=== PATIENT | female | born 1930 | race Caucasian/White ===

== ENCOUNTER 2018-09-02 19:43 | Inpatient (IN) | payer MEDICARE ==
[2018-09-02] MEDS ORDERED: Ondansetron HCl/PF 4 MG/2 ML Vial ONE (20:25)
[2018-09-02 20:32] LABS: #Eosinphils 0.5 thou/uL (0.0-0.7); #Lymphocytes 2.4 thou/uL (1.20-3.40); #Monocytes 1.2 thou/uL (0.11-0.59); #Neutrophils 8.8 thou/uL (1.40-6.50); %Basophils 0.3 % (0.0-1.0); %Eosinophils 3.6 % (0.0-10.0); %Lymphocytes 18.5 % (21.0-51.0); %Monocytes 9.3 % (0.0-10.0); %Neutrophils 68.3 % (42.0-75.0); Hemoglobin 15.9 g/dL (12.0-16.0); Mean Corpuscular HGB CONC 33.5 g/dL (32.0-36.0); Mean Corpuscular Hemoglobin 30.3 pg (27.0-31.0); Mean Corpuscular Volume 90.3 fL (78.0-98.0); Mean Platelet Volume 8.6 fL (7.4-10.4); Platelet Count 181 thou/uL (130-400); RBC Distribution Width 12.9 % (11.5-14.5); Red Blood Cell (RBC) Count 5.25 mill/uL (4.20-5.40); White Blood Cell (WBC) Count 12.9 thou/uL (4.8-10.8)
[2018-09-02 20:56] LABS: ALT (SGPT) 16 U/L (8-55); AST (SGOT) 23 U/L (5-34); Alkaline Phosphatase 101 U/L (40-150); Anion Gap 14 mmol/L (10-20); BUN (Urea Nitrogen) 19 mg/dL (9.8-20.1); Bilirubin, Total 0.8 mg/dL (0.2-1.2); CK (CPK) 39 U/L (29-168); Calc. Creatinine Clearance 0 mL/min (70-130); Calcium 10.2 mg/dL (7.8-10.44); Carbon Dioxide 28 mmol/L (23-31); Chloride 102 mmol/L (98-107); Estimated GFR-MDRD 58; Globulin 3.5 g/dL (2.4-3.5); Glucose 107 mg/dL (83-110); Lipase 29 U/L (8-78); Potassium 3.8 mmol/L (3.5-5.1); Protein, Total 7.5 g/dL (6.0-8.3); Sodium 140 mmol/L (136-145)
[2018-09-02] MEDS ORDERED: Diltiazem 125 MG/25 ML ONE (21:00)
[2018-09-02] MEDS ORDERED: Morphine 2 MG/ML SYRINGE ONE (21:46)
[2018-09-02 21:49] LABS: CKMB 2.2 ng/mL (0-6.6); Troponin I 0.018 ng/mL (< 0.028)
[2018-09-02] MEDS ORDERED: Promethazine HCl 25 MG/ML VIAL ONE (21:55)
--- NOTE | 2018-09-02 22:20 | PDOC.FPRHP ---
Addendum entered and electronically signed by Azucena Chen MD 09/03/18 05:08 : Due to patient's iodine allergy will do CT without contrast. Patient's reaction is severe (tongue swelling) - recommendation is to avoid iodine. Original Note: - History of Present Illness Chief Complaint: abdominal pain History of Present Illness: This is an 88 yo F here with a CC of abdominal pain. The patient has a PMH significant for COPD and atrial fibrillation w/ pacemaker. The patient states she has had abdominal pain that started 2 days ago and suddenly became worse today. The pain cramping, non-radiating, episodic. The pain is associated with nausea and vomiting. 09/08 pain. Patient endorses BM this AM, non-bloody. In the ED, the patient experienced a run of V-tach - during this time she became nauseous. The patient was unable to take her home medications today due to nausea and vomiting. Patient states she has had a colonscopy in the last 10 years that was normal. Patient endorses a 20 lb unintentional weight loss over the last 6 months. Endorses SOB which is her baseline due to COPD. Denies fever , sick contacts, chest pain, LE swelling, urinary symptoms. ED Course: Given zofran, phenergan, morphine - Allergies/Adverse Reactions Allergies Allergy/AdvReac Type Severity Reaction Status Date / Time iodine Allergy Severe swollen Verified 09/03/18 03:13 tongue - Home Medications Medication Instructions Recorded Confirmed Type PARoxetine HCl [Paxil] 20 mg PO DAILY 09/05/13 09/03/18 History Rivaroxaban [Xarelto] 20 mg PO DAILY 09/05/13 09/03/18 History traZODone HCl 100 mg PO HS 05/04/14 09/03/18 History Albuterol Sulfate [Proair HFA] 2 puff INH Q4HR PRN #0 inh 05/06/14 09/03/18 Rx Atorvastatin Calcium [Lipitor] 10 mg PO DAILY 09/03/18 09/03/18 History Carvedilol 25 mg PO BID 09/03/18 09/03/18 History Diltiazem CD [Cardizem CD] 120 mg PO BID 09/03/18 09/03/18 History Fluticasone/Vilanterol [Breo 1 puff INH BID 09/03/18 09/03/18 History Ellipta] Levothyroxine Sodium [Synthroid] 50 mcg PO DAILY 09/03/18 09/03/18 History Losartan Potassium 50 mg PO DAILY 09/03/18 09/03/18 History Roflumilast [Daliresp] 500 mcg PO DAILY 09/03/18 09/03/18 History Sotalol HCl [Sotalol] 80 mg PO BID 09/03/18 09/03/18 History - History PMHx: COPD, afib with pacemaker, HTN PSHx: carpal tunnel surgery- bilateral, cholecystectomy, hysterectomy, orthopedic surgery - neck, back, r shoulder, thumb bilatteral, bilateral knee replacement FHx: non contributory Social: no smoking hx, denies alcohol and drug use - Review of Systems General: reports: weight/appetite/sleep changes. denies: fever/chills, night sweats Eyes: denies: vision changes Respiratory: reports: shortness of breath Cardiovascular: reports: palpitation. denies: chest pain, edema Gastrointestinal: reports: nausea, vomiting, abdominal pain. denies: diarrhea, constipation, GI bleeding Genitourinary: denies: incontinence, dysuria, polyuria Skin: denies: rashes, lesions Musculoskeletal: denies: swelling - Vital signs BP: 166/88 HR: 102 RR: 20 Tmax: 97.8 Pox: 94% on RA Wt: 59kg - Physical Exam Constitutional: NAD, awake, alert and oriented, well developed HEENT: normocephalic and atraumatic, EOMI, grossly normal vision, MMM Neck: FROM Chest: no-tender to palpation, no lesions Heart: RRR, normal S1/S2, no murmurs/rubs/gallops Lungs: CTAB, good air movement, no wheezing Abdomen: soft, bowel sounds present, no masses/distention -Abdomen: TTP diffusely, more in RLQ and LUQ; no rebound tenderness, no peritoneal signs, (+) guarding Musculoskeletal: ROM grossly normal Neurological: no focal deficit Skin: no rash/lesions Heme/Lymphatic: no unusual bruising or bleeding, no purpura, no petechia Psychiatric: normal mood and affect FMR H&P: Results - Labs Result Diagrams: 09/03/18 00:14 09/03/18 00:14 Lab results: WBC 12.9 thou/uL (4.8-10.8) H 09/02/18 20:24 Hgb 15.9 g/dL (12.0-16.0) 09/02/18 20:24 Hct 47.4 % (36.0-47.0) H 09/02/18 20:24 MCV 90.3 fL (78.0-98.0) 09/02/18 20:24 Plt Count 181 thou/uL (130-400) 09/02/18 20:24 Neutrophils % 68.3 % (42.0-75.0) 09/02/18 20:24 Sodium 140 mmol/L (136-145) 09/02/18 20:24 Potassium 3.8 mmol/L (3.5-5.1) 09/02/18 20:24 Chloride 102 mmol/L (98-107) 09/02/18 20:24 Carbon Dioxide 28 mmol/L (23-31) 09/02/18 20:24 BUN 19 mg/dL (9.8-20.1) 09/02/18 20:24 Creatinine 0.92 mg/dL (0.6-1.1) 09/02/18 20:24 Glucose 107 mg/dL (83-110) 09/02/18 20:24 Calcium 10.2 mg/dL (7.8-10.44) 09/02/18 20:24 Total Bilirubin 0.8 mg/dL (0.2-1.2) 09/02/18 20:24 AST 23 U/L (5-34) 09/02/18 20:24 ALT 16 U/L (8-55) 09/02/18 20:24 Alkaline Phosphatase 101 U/L (40-150) 09/02/18 20:24 Creatine Kinase 39 U/L (29-168) 09/02/18 20:24 CK-MB (CK-2) 2.2 ng/mL (0-6.6) 09/02/18 20:24 Serum Total Protein 7.5 g/dL (6.0-8.3) 09/02/18 20:24 Albumin 4.0 g/dL (3.4-4.8) 09/02/18 20:24 Lipase 29 U/L (8-78) 09/02/18 20:24 - EKG Interpretation EKG: vtach; QTc > 500 FMR H&P: A/P - Problem List (1) COPD (chronic obstructive pulmonary disease) Current Visit: Yes Status: Acute (2) Atrial fibrillation Current Visit: Yes Status: Acute Code(s): I48.91 - UNSPECIFIED ATRIAL FIBRILLATION (3) HTN (hypertension) Current Visit: No Status: Chronic Code(s): I10 - ESSENTIAL (PRIMARY) HYPERTENSION (4) Ventricular tachycardia Current Visit: Yes Status: Acute Code(s): I47.2 - VENTRICULAR TACHYCARDIA (5) Leukocytosis Current Visit: Yes Status: Acute Code(s): D72.829 - ELEVATED WHITE BLOOD CELL COUNT, UNSPECIFIED - Plan This is an 88 yo F presenting to the ED for work up of abdominal pain. Ventricular Tachycardia - Will order Mg, Phos - Will order TSH - Will order Echo to be done tomorrow - Trop neg X1 , will trend again Abdominal Pain - diagnosis uncertain at this time - differential includes: adynamic ileus, obstruction, appendicitis, mesenteric ischemia - will give LR @ 100mls/hr due to nausea/vomiting - Will order CT of abdomen w wo contrast - FOBT pending Leukocytosis - WBC: 12.9 - Will recheck with AM CBC Atrial fibrillation s/p pacemaker placement - Aware, will restart home meds - Nursing communication order to interrogate pacemaker COPD - Aware, will restart home meds - Will monitor VS and O2 sat; currently 92% in ED on RA HTN - BP: 160s/100 in ED - Will restart home meds Code: FULL DISPO: will admit to IMCU and continue to monitor Case Discussed with Dr. Moreno FMR H&P: Upper Level - Pertinent history 88 yo female here for abd pain. Patient reports this has been going on about 2 days, cramping, diffuse, non-radiating, lasting 10-15 seconds, every 15minutes. Assoc N/V with non-bloody emesis today x2. Endorses BM this morning with no blood. Denies fever, CP, dysuria, acute SOB. Medical Hx of COPD from second hand smoke, Afib with pacemaker, HTN. In ER patient had a run of Vtach which went in and out, lasting about an hour. They tried to give digoxin IV 5mg, but IV infiltrated so they are not sure how much was given. Rhythm strip at time of interview was paced by pacemaker. Patient also received morphine in ER with significant improvement of pain. - Pertinent findings 129/100 HR: 104 RR: 22 SO2: 92% GEN: NAD, AOx3 CARD: mild tachycardia, no m/g/r PULM: CTAB ABD: diffusely tender to deep palpation, BSx4, no guarding or peritoneal signs EXT: no cyanosis or edema KUB: adynamic ileus or mechanical obstruction EKG: ventricular paced with occasional PVCs trop: 0.018 Lipase: 29 WBC: 12.9 AST/ALT: 23/16 - Plan Date/Time: 09/02/18 [id number] I, London Corrales DO, have evaluated this patient and agree with findings/plan as outlined by administration intern resident. Pertinent changes/additions are listed here. Abdominal pain: etiology uncertain and nonspecific history and exam findings ddx includes appendicitis, ileus, adhesions, mesenteric ischemia, splenic infarct CTabdomen FOBT maintenance fluids due to n/v Afib with runs of vtach, Hx of pacemaker placement currently pacing Check Mg, Phos, TSH Restart home meds ECHO Monitor on IMCU Will also try to interrogate chest hardware trend trops HTN Continue home meds COPD Stable, continue to monitor Attending Addendum - Attending Addendum Date/Time: 09/03/18 [id number] I personally evaluated the patient and discussed the management with Dr. Chen on 09/02/2018 @23:45 I agree with the History, Examination, Assessment and Plan documented above with any addition or exceptions noted below- Briefly this is an 88 yo female with PMH of COPD, A-fib with pacer who presented c/o abdominal pain. Pain is described as cramping and started 2 days ago. Worsened acutely today which prompted her visit to the ER. Has had associated N/V today. Last BM am and normal. (+) flatus. Denies any diarrhea. No ill contacts. In ER monitoring specialist noted to show V-tach intermittently. PMH/PSH/Meds/ SH reviewed and agree with resident's documentation. Afebrile VSS Exam repeated by me and agree with resident's findings. Labs: WBC=12.9, H/H=15.9/47.4, Vd=425, K=3.8, BUN/Cr= 19/0.92, Trop I=0.018. EKG- V-paced rhythm. Abd series- adynamic ileus vs mechanical obstruction. A/P: 1) Abd pain- possible ileus versus SBO- not actively vomiting currently; plan for bowel rest; NPO except meds. Check CT abdomen. 2) V-tachycardia- only on monitoring specialist; rhythm strips with V-paced rhythm and some PVCs. Continue to monitor in IMCU. Check serial cardiac enzymes. Echo in AM.
--- NOTE | 2018-09-02 22:26 | RAD ---
ACUTE ABDOMINAL SERIES FRONTAL VIEW CHEST TWO VIEW ABDOMEN SERIES 09/02/18 INDICATION: Pain, abdominal pain. FINDINGS: There are multiple extrinsic artifacts limiting visualization. There is no obvious consolidation, def inite pneumothorax or significant pleural effusion. The bowel gas pattern reveals mildly dilated, air filled loops of bowel of the abdomen with differential air fluid levels. There is no free air beneat h the hemidiaphragms. There is osseous degenerative change and vascular calcification. IMPRESSION: Findings which may relate to adynamic ileus or mechanical obstruction. Correlate clinically. Continued imaging followup is recommended. POS: [facility]
[2018-09-02] MEDS ORDERED: Morphine 4 MG/ML VIAL IV PRN (23:33)
[2018-09-02] MEDS ORDERED: Ondansetron ODT 4 MG TAB SL PRN (23:34)
[2018-09-02] MEDS ORDERED: Ondansetron HCl/PF 4 MG/2 ML Vial IVP PRN (23:34)
[2018-09-03] MEDS ORDERED: Ondansetron HCl/PF 4 MG/2 ML Vial IVP PRN (00:01)
[2018-09-03] MEDS ORDERED: Acetaminophen 650 MG Suppository PR PRN (00:01)
[2018-09-03] MEDS ORDERED: Acetaminophen 325 MG TAB PO PRN (00:01)
[2018-09-03] MEDS ORDERED: Ondansetron ODT 4 MG TAB PO PRN (00:01)
[2018-09-03] MEDS ORDERED: PROVENTIL INHALER 6.7 G (200 INHALATIONS) INH PRN (00:15)
[2018-09-03] MEDS ORDERED: Carvedilol 25 MG TAB PO SCH (00:30)
[2018-09-03] MEDS ORDERED: Sotalol HCl 80 MG TAB PO SCH (00:30)
[2018-09-03 01:01] LABS: Magnesium 1.9 mg/dL (1.6-2.6); Phosphorus 4.4 mg/dL (2.3-4.7)
[2018-09-03 01:09] LABS: Troponin I 0.015 ng/mL (< 0.028)
[2018-09-03] MEDS ORDERED: Morphine 2 MG/ML SYRINGE SLOW IVP PRN (02:19)
[2018-09-03] MEDS ORDERED: Morphine 4 MG/ML VIAL SLOW IVP PRN (02:20)
[2018-09-03] MEDS: Lactated Ringer's 1,000 ML IV SCH ×4 (02:45→21:23)
[2018-09-03 04:55] LABS: #Eosinphils 0.4 thou/uL (0.0-0.7); #Lymphocytes 1.9 thou/uL (1.20-3.40); #Monocytes 1.4 thou/uL (0.11-0.59); #Neutrophils 9.2 thou/uL (1.40-6.50); %Basophils 0.3 % (0.0-1.0); %Eosinophils 3.3 % (0.0-10.0); %Lymphocytes 14.5 % (21.0-51.0); %Monocytes 10.9 % (0.0-10.0); Hemoglobin 14.7 g/dL (12.0-16.0); Mean Corpuscular HGB CONC 32.3 g/dL (32.0-36.0); Mean Corpuscular Hemoglobin 29.7 pg (27.0-31.0); Mean Platelet Volume 8.9 fL (7.4-10.4); Platelet Count 166 thou/uL (130-400); RBC Distribution Width 12.9 % (11.5-14.5); Red Blood Cell (RBC) Count 4.95 mill/uL (4.20-5.40); White Blood Cell (WBC) Count 12.9 thou/uL (4.8-10.8)
[2018-09-03 05:04] LABS: Anion Gap 13 mmol/L (10-20); BUN (Urea Nitrogen) 19 mg/dL (9.8-20.1); Calc. Creatinine Clearance 44 mL/min (70-130); Carbon Dioxide 29 mmol/L (23-31); Chloride 102 mmol/L (98-107); Estimated GFR-MDRD 63; Potassium 3.4 mmol/L (3.5-5.1); Sodium 141 mmol/L (136-145)
[2018-09-03 05:05] LABS: Calcium 9.6 mg/dL (7.8-10.44); Glucose 99 mg/dL (83-110)
[2018-09-03] MEDS: Levothyroxine Sodium 50 MCG TAB PO SCH (06:15)
--- NOTE | 2018-09-03 06:24 | PDOC.FM ---
- Subjective Subjective: Ms Verma is doing much better this morning pain is 0/10, previously 10/10. She does endorse abdominal pain when she presses on her stomach. Last BM yesterday morning. Denies nausea, vomiting. No other concerns. Prior hx of multiple abdominal exams including hysterectomy, appendectomy, cholecystectomy and bladder sling. - Objective MAR Reviewed: Yes Vital Signs & Weight: Vital Signs (12 hours) Temp Pulse Resp BP BP Pulse Ox 09/03/18 04:06 97.8 F 79 18 121/69 97 09/03/18 02:02 91 22 H 103/55 L 92 L 09/03/18 00:53 100 152/84 H 09/02/18 23:24 98.2 F 108 H 25 H 159/94 H 94 L Weight Weight 60.866 kg I&O: 09/01/18 09/02/18 09/03/18 06:59 06:59 06:59 Intake Total 541 Output Total 600 Balance -59 Result Diagrams: 09/03/18 00:14 09/03/18 00:14 Phys Exam - Physical Examination Constitutional: NAD laying in bed Respiratory: no wheezing, clear to auscultation bilateral Cardiovascular: RRR, no significant murmur Gastrointestinal: soft, positive bowel sounds diffusely tender to palpation, worst in RLQ Musculoskeletal: no edema, pulses present Psychiatric: normal affect, A&O x 3 Skin: cap refill <2 seconds Dx/Plan (1) Atrial fibrillation Code(s): I48.91 - UNSPECIFIED ATRIAL FIBRILLATION Status: Acute (2) COPD (chronic obstructive pulmonary disease) Status: Acute (3) Leukocytosis Code(s): D72.829 - ELEVATED WHITE BLOOD CELL COUNT, UNSPECIFIED Status: Acute (4) Ventricular tachycardia Code(s): I47.2 - VENTRICULAR TACHYCARDIA Status: Acute (5) Atrial fibrillation with RVR Code(s): I48.91 - UNSPECIFIED ATRIAL FIBRILLATION Status: Acute (6) HTN (hypertension) Code(s): I10 - ESSENTIAL (PRIMARY) HYPERTENSION Status: Chronic - Plan Plan: Ventricular Tachycardia - Mg, Phos, TSH nml - Echo pending - Trop neg x2 Abdominal Pain - Adynamic ileus vs obstruction vs appendicitis vs mesenteric ischemia - LR @100mls/hr - Abdominal Xrays: findings which may relate to adynamic ileus or mechanical obstruction. Reviewed imaging. - CT: Mild/mod partial SBO right lower hemipelvis. Numerous dilated loops of ileum transition to nml terminal ileum in right lower hemipelvis. findings of prior granulomatous disease - FOBT pending - Surgery consulted - NPO Nausea/Vomiting - LR @100mls/hr Leukocytosis - Wbc 12.9 - Continue to monitor Atrial fibrillation s/p pacemaker placement - Continue home meds - Nursing communication order to interrogate pacemaker COPD - Continue home meds HTN - Continue home meds Code Status: FULL DVT ppx: Xarelto
[2018-09-03] MEDS ORDERED: Potassium Chloride 20 MEQ TAB PO SCH (06:30)
[2018-09-03] MEDS: Mometasone/Formoterol 120 PUFF INHALER INH SCH ×2 (06:49→18:53)
--- NOTE | 2018-09-03 07:41 | CT ---
CT OF THE ABDOMEN AND PELVIS WITHOUT IV CONTRAST: INDICATION: Adynamic ileus versus mechanical obstruction. COMPARISON: None. FINDINGS: There is bibasilar volume loss within the lung bases. There is a calcified granuloma in the left lowe r lobe. Gallbladder is surgically absent. There are scattered granuloma involving the liver and the spleen. Unopacified pancreas, adrenal glands, and kidneys appear within normal limits. There is severe gastric calcification involving the abdominopelvic vasculature. Visualized bladder is unremarkable-appearing. There are scattered diverticula involving the colon. There is some decompression of portions of the descending colon and sigmoid colon giving the appearance of mild wall thickening. There is also mild free fluid in the lower pelvis. Colitis would be difficult to definitely exclude but is felt to be unlikely. There is some fluid density present within the right hemicolon. There is scattered free f luid within the abdomen. There are dilated loops of distal ileum with decompressed appearance to the terminal ileum. No definite transitional zone is evident; however, it may occur within the right lo wer quadrant of the abdomen where there is decompressed terminal ileum extending up to the cecum. Ov erall, the findings are suspicious for a mild to moderate partial small bowel obstruction. There is diffuse osteopenia. There are bilateral pars defects at L5. There is scattered degenerativ e and osteoarthritic change. There is thoracolumbar scoliosis. No definite acute osseous abnormalit y is evident. IMPRESSION: 1. Findings suspicious for mild to moderate partial small bowel obstruction in the right lower hemip andrzej. There are numerous dilated loops of ileum that appear to transition to normal terminal ileum in the right lower hemipelvis. The actual transition zone is difficult to see due to the absence of enteric contrast as well as free fluid in the pelvis. No definite free air is evident. 2. Bibasilar atelectasis. 3. Findings of prior granulomatous disease. 4. Other chronic findings as above. POS: BH
--- NOTE | 2018-09-03 08:25 | CON ---
DATE OF CONSULTATION: 09/03/2018 A 70 minutes time was spent in consult. Of that, greater than 50% was spent with the patient and/or the patient's unit in the hospital. REASON FOR CONSULTATION: [facility] mandatory consult. HISTORY OF PRESENT ILLNESS: The patient is a pleasant 88-year-old female who [facility] with subacute onset of abdominal pain. Symptoms started 2 days prior to admission. Thi s was associated with nausea and cramping. She denies any emesis. She denies any diarrhea. She say s the pain is better this morning. A CT obtained last night demonstrated a partial small bowel obstr uction in the right lower hemipelvis. At the time of this dictation, she has not been seen by the Hi stroenterology or General Surgery. PAST MEDICAL HISTORY: 1. COPD. 2. Atrial fibrillation. 3. Hypertension. 4. Osteoarthritis. PAST SURGICAL HISTORY: She has had an appendectomy, cholecystectomy, bilateral carpal tunnel release , bilateral knee replacements, neck surgery, right shoulder surgery, hysterectomy. FAMILY MEDICAL HISTORY: Unremarkable. SOCIAL HISTORY: Denies smoking, alcohol consumption. She says she lives in [place] with her grands on. She seeks most of her medical care in [place]. REVIEW OF SYSTEMS: Denies any fever or chills. She has had some nausea, but no vomiting. No hemate mesis, no melena, no hematochezia, no hematuria, no dysuria. No problems controlling blood sugars. PHYSICAL EXAMINATION: VITAL SIGNS: Temperature 97.6, pulse 83, respirations 18, O2 sat 97% on 2 liters, blood pressure 116 /66. HEENT: Pupils are reactive. Sclerae are anicteric. Oropharynx clear. NECK: No adenopathy, JVD, or bruits. LUNGS: Clear without wheezing or rhonchi. CARDIAC: S1 and S2 regular. There is a pacemaker palpable in left upper quadrant chest. ABDOMEN: She has tenderness in right mid portion of her stomach laterally. No rebound. Bowel sound s hypoactive. EXTREMITIES: No clubbing, cyanosis or edema. She has bilateral knee surgery scars. LABORATORY DATA: White blood cell count 12.9, hematocrit 45.5, platelet count 166. Sodium 141, pota ssium 3.4, chloride 102, CO2 29, BUN 19, creatinine 0.8, glucose 99. IMAGING: Abdominal CT was reviewed. ASSESSMENT: 1. Small-bowel obstruction. 2. Ventricular tachycardia at the time of admission, which was not sustained. 3. Underlying chronic obstructive pulmonary disease. RECOMMENDATIONS: 1. I would recommend a General Surgery consultation. 2. The patient really does not require IMCU placement at this time. She can be moved out to the tel emetry unit. I would keep her on IV fluids until General Surgery makes further disposition regarding small-bowel obstruction.
[2018-09-03] MEDS ORDERED: Non-Formulary Item 1 EACH (Fluticasone/Vilanterol [Breo Ellipta] 1 PUFF) INH SCH (09:00)
[2018-09-03] MEDS: Roflumilast [Daliresp] 500 MCG PO SCH ×2 (09:10→10:53)
[2018-09-03] MEDS: Rivaroxaban 10 MG TAB PO SCH ×2 (09:10→17:36)
[2018-09-03] MEDS ORDERED: Magnesium Sulfate 2 GM in Sodium Chloride 0.9% 100 ML IVPB SCH (09:30)
[2018-09-03] MEDS ORDERED: Magnesium 2 GM/50 ML 2 GM in Premix Bag 1 BAG IVPB SCH (10:00)
[2018-09-03] MEDS: Carvedilol 25 MG TAB PO SCH ×2 (10:47→21:23)
[2018-09-03] MEDS: Sotalol HCl 80 MG TAB PO SCH ×2 (10:48→21:22)
[2018-09-03] MEDS: Losartan 25 MG TAB PO SCH (10:48)
[2018-09-03] MEDS: Atorvastatin Calcium 10 MG TAB PO SCH (10:48)
[2018-09-03] MEDS: PARoxetine 20 MG TAB PO SCH (10:50)
--- NOTE | 2018-09-03 10:59 | PRG ---
DATE OF SERVICE: 09/03/2018 This is an addendum to the note of Dr. Haley Orozco. Ms. Verma is a pleasant 88-year-old white female patient who was admitted with a small-bowel obstru ction. With conservative management including IV fluids and keeping in an n.p.o. status, it appears this morning that the obstruction is likely resolved. Her abdomen is flat and soft with minimal righ t lower quadrant tenderness. No rebound, no guarding. We will proceed with small bowel series and i f this is normal, we can likely begin to feed her. We will go ahead and consult Surgery unless any c omplications arise. Otherwise, as stated, she seems to have resolved her SBO with conservative manag ement. Her CBC this morning shows a white count elevation of 12,900. Her hemoglobin is 14.7, hematocrit 45. 5. Chemistries; her sodium is 141, potassium slightly low at 3.4. We need to bring this up to 4. H er chloride is 102, bicarbonate 29, BUN 19, creatinine 0.85. She also had a low magnesium level of 1 .9. This needs to be corrected to above 2. While in the ER, she had a run of nonsustained ventricular tachycardia. This was likely due to mild electrolyte disturbances along with the pain she was in from her SBO. She has had no further activit y on the monitor while in the IMCU.
--- NOTE | 2018-09-03 12:54 | CON ---
DATE OF CONSULTATION: 09/03/2018 REQUESTING PHYSICIAN: Dr. Candace Hahn. HISTORY OF PRESENT ILLNESS: This is an 88-year-old pleasant woman who was admitted yesterd ay. The patient reports insidious onset of lower abdominal pain which started 3 days previously. Pa in intensified to 09/08, described as crampy and associated with nausea yesterday. As a result, she presented to emergency department. Workup last night included a CT scan of the abdomen and pelvis wh ich was suspicious for acute small-bowel obstruction. I was asked to evaluate the patient for possib le surgical management. At the time of my evaluation, patient is awake and alert. She reports no ab dominal pain. Her last bowel movement was yesterday morning and was normal for her. She reports int ermittent episode of melena. The last time was approximately 2 months ago. She denies any hematoche priscilla. She endorses a 20-pound unexplained weight loss over the last 6 months. She also endorses fati richi. Appetite is good. She denies any early satiety. The patient denies any fevers or chills. PAST MEDICAL HISTORY: Pertinent for COPD, which she acquired from secondary smoking. Other pertinen t past medical history includes essential hypertension and atrial fibrillation. SURGICAL HISTORY: Pertinent for pacemaker implantation, cholecystectomy, hysterectomy through an inf raumbilical midline incision, bilateral knee arthroplasties, bilateral carpal tunnel release, appende ctomy, and right shoulder surgery. FAMILY HISTORY: Noncontributory for this patient's age. PREHOSPITALIZATION MEDICATIONS: Carvedilol 25 mg p.o. b.i.d., atorvastatin 10 mg p.o. daily, albuter ol inhaler p.r.n., diltiazem 120 mg p.o. b.i.d., Breo Ellipta 1 puff b.i.d., levothyroxine 50 mcg p.o . daily, losartan 50 mg p.o. daily, paroxetine 20 mg p.o. daily, sotalol 80 mg p.o. b.i.d., trazodone 100 mg p.o. at bedtime, and Xarelto 20 mg p.o. daily. ALLERGIES: IODINE. REVIEW OF SYSTEMS: A 10-point review of systems essentially unremarkable except for as stated in pas t medical history and chief complaint. PHYSICAL EXAMINATION: GENERAL: This reveals an 88-year-old normally developed woman who is otherwise coherent and interact preston and appears stated age. The patient is alert and oriented x3. She appears to be in no acute dis tress at the time of my evaluation. VITAL SIGNS: Today includes blood pressure 116/66, pulse is 73, respiratory rate is 18, temperature is 97.6 degrees Fahrenheit and oxygen saturation is 97% on 2 liters by nasal cannula oxygen. HEENT: Examination reveals normocephalic and atraumatic. HEART: Reveals irregular rate and irregular rhythm. LUNGS: Clear to auscultation bilaterally. Breathing regular and unlabored. ABDOMEN: Soft, nontender and nondistended. Liver and spleen nonpalpable below costal margin. She c learly has no peritoneal signs on examination. NEUROLOGIC: Examination reveals no focal deficits present. EXTREMITIES: Reveals 2+ radial and pedal pulses bilaterally. No ankle edema present. LABORATORY DATA: Pertinent laboratory findings today includes CBC with 12,900 white blood cells, hem oglobin and hematocrit 14.7 and 45.5 respectively, platelet count is 166,000. Metabolic profile; sod ium is 141, potassium 3.4, chloride is 102, bicarbonate is 29, BUN is 19, creatinine is 0.85, glucose is 99, phosphorus is 4.4 and magnesium is 1.9. IMAGING DATA: I have personally reviewed the CT scan of the abdomen and pelvis obtained yesterday wh ich reveals multiple distended loops of small bowel in the right lower quadrant. There is gas within the colon and rectum. There appears to be no transition zone, although this was a noncontrast CT sc an which makes it difficult to appreciate any transition point. IMPRESSION: 1. Resolving abdominal pain, likely secondary to partial small-bowel obstruction. 2. Acute hypokalemia. 3. Acute hypomagnesemia. RECOMMENDATIONS: 1. Correct abnormal electrolytes. 2. Obtain acute small bowel follow through to better define any mechanical bowel obstruction or absc ess there off. 3. There clearly is no acute surgical indication for this patient at this time. We will continue wi th serial physical examination and make further recommendations as necessary. Ultimately, this patie nt will certainly need a repeat prep bowel colonoscopy by GI hopefully on outpatient basis as I am co ncerned of a possible neoplastic process, especially in the right colon given 20-pound unexplained we ight loss over the last 6 months in an elderly patient who has not had any colonoscopy in the past 10 years. Above findings and recommendation have been discussed with the patient who clearly indicates understa nding of information given. I answered her questions. Thank you again, Dr. Hahn for allowing me the opportunity to participate in the care of this patien t.
[2018-09-03] MEDS ORDERED: MD-Gastroview 120 ML BOT ONE (13:32)
--- NOTE | 2018-09-03 13:48 | RAD ---
SMALL BOWEL FOLOW-THROUGH: Date: 09/03/18 INDICATION: Abdominal pain. History of ileus versus partial obstruction. FINDINGS: There is passage of enteric contrast through the small bowel and into the colon at approximately 30 m inutes. By 1 hour, there is subsequent opacification of the majority of the colon. IMPRESSION: Appropriate transit of contrast into the colon, excluding high grade obstruction. POS: [facility]I
[2018-09-03] MEDS: traZODone HCl 50 MG TAB PO SCH (21:22)
[2018-09-04] MEDS: Levothyroxine Sodium 50 MCG TAB PO SCH (05:44)
--- NOTE | 2018-09-04 06:24 | PDOC.FM ---
- Subjective Subjective: Patient states pain is well-controlled this AM. Denies anyt vomiting overnight but did have some nausea after drinking some coffee this AM. States last BM was this AM. States she has not been passing gas. - Objective MAR Reviewed: Yes Vital Signs & Weight: Vital Signs (12 hours) Temp Pulse Resp BP BP Pulse Ox 09/04/18 04:31 98.5 F 75 17 157/84 H 93 L 09/04/18 00:32 97.7 F 93 19 165/86 H 93 L 09/03/18 21:22 84 153/79 H 09/03/18 20:00 93 L 09/03/18 19:44 98.5 F 84 15 153/79 H 93 L Weight Weight 60.373 kg I&O: 09/02/18 09/03/18 09/04/18 06:59 06:59 06:59 Intake Total 541 2252 Output Total 600 1600 Balance -59 652 Result Diagrams: 09/03/18 00:14 09/04/18 06:50 Phys Exam - Physical Examination Constitutional: NAD HEENT: sclera anicteric Neck: supple, full ROM Respiratory: no wheezing, no rales, no rhonchi, clear to auscultation bilateral Cardiovascular: no significant murmur irregularly irregular rhythm, regular rate Gastrointestinal: soft, no distention, positive bowel sounds slightly TTP, especially in mid abdomen Musculoskeletal: no edema Neurological: non-focal, moves all 4 limbs Psychiatric: normal affect, A&O x 3 Skin: no rash, normal turgor Dx/Plan (1) Atrial fibrillation Code(s): I48.91 - UNSPECIFIED ATRIAL FIBRILLATION Status: Acute (2) COPD (chronic obstructive pulmonary disease) Status: Acute (3) Leukocytosis Code(s): D72.829 - ELEVATED WHITE BLOOD CELL COUNT, UNSPECIFIED Status: Acute (4) Ventricular tachycardia Code(s): I47.2 - VENTRICULAR TACHYCARDIA Status: Acute (5) Atrial fibrillation with RVR Code(s): I48.91 - UNSPECIFIED ATRIAL FIBRILLATION Status: Acute (6) Diastolic CHF, acute on chronic Code(s): I50.33 - ACUTE ON CHRONIC DIASTOLIC (CONGESTIVE) HEART FAILURE Status : Acute (7) Chronic respiratory failure Code(s): J96.10 - CHRONIC RESPIRATORY FAILURE, UNSP W HYPOXIA OR HYPERCAPNIA Status: Chronic (8) Dyslipidemia Code(s): E78.5 - HYPERLIPIDEMIA, UNSPECIFIED Status: Chronic (9) HTN (hypertension) Code(s): I10 - ESSENTIAL (PRIMARY) HYPERTENSION Status: Chronic - Plan Plan: Plan: Ventricular Tachycardia - Resolved, likely 2/2 electrolyte abnormalities and/or medication noncompliance. - Echo showed preserved EF of 55-60%. - Trop neg x2 on admission. - Will continue to follow electrolytes w/ QD BMP, Mg, phos. SBO - Will consider de-escalating IVFs and advancing to clear liquids today as small bowel follow through negative for obstruction. - Will continue PO pain meds today and PO zofran for nausea. h/o melena w/ weight loss - Surgery consulted & did not see any need for emergent surgical intervention at this time. Recommended an FOBT and colonoscopy as an outpatient as patient reported episodic melena & 20 pound unintentional weight loss. - FOBT pending. Leukocytosis - Wbc 12.9 on admission and yesterday. Likely stress response from SBO. - Continue to monitor w/ AM CBC. hypokalemia - 3.4 this AM. - Will continue w/ QD PO K replacement & follow w/ AM BMPs. Atrial fibrillation s/p pacemaker placement - Continue home meds - Nursing communication order placed to interrogate pacemaker. Will ensure this is done today. COPD - Continue home meds HTN - Continue home meds Hypothyroidism - TSH WNLs on admission. - Will continue home meds. HLD - Will continue home meds. Code Status: FULL DVT ppx: Xarelto Dispo: Potential d/c later today or tomorrow once tolerating PO. Will transfer to floor today.
[2018-09-04] MEDS: Mometasone/Formoterol 120 PUFF INHALER INH SCH ×2 (06:39→19:22)
[2018-09-04 07:30] LABS: Anion Gap 12 mmol/L (10-20); BUN (Urea Nitrogen) 17 mg/dL (9.8-20.1); Calc. Creatinine Clearance 52 mL/min (70-130); Calcium 8.6 mg/dL (7.8-10.44); Carbon Dioxide 26 mmol/L (23-31); Chloride 106 mmol/L (98-107); Estimated GFR-MDRD 78; Glucose 59 mg/dL (83-110); Magnesium 1.8 mg/dL (1.6-2.6); Phosphorus 2.8 mg/dL (2.3-4.7); Potassium 3.4 mmol/L (3.5-5.1); Sodium 141 mmol/L (136-145)
[2018-09-04] MEDS ORDERED: Potassium Chloride 20 MEQ TAB PO SCH (08:00)
[2018-09-04] MEDS: Rivaroxaban 10 MG TAB PO SCH (08:57)
[2018-09-04] MEDS: Losartan 25 MG TAB PO SCH (08:57)
[2018-09-04] MEDS: Sotalol HCl 80 MG TAB PO SCH ×2 (08:57→20:54)
[2018-09-04] MEDS: PARoxetine 20 MG TAB PO SCH (08:58)
[2018-09-04] MEDS: Atorvastatin Calcium 10 MG TAB PO SCH (08:58)
[2018-09-04] MEDS: Carvedilol 25 MG TAB PO SCH ×2 (08:58→20:55)
[2018-09-04] MEDS: Roflumilast [Daliresp] 500 MCG PO SCH (08:59)
[2018-09-04] MEDS: Lactated Ringer's 1,000 ML IV SCH (09:00)
--- NOTE | 2018-09-04 14:56 | PRG ---
DATE OF SERVICE: 09/04/2018 SUBJECTIVE: The patient is doing well and has no complaints. She wants to go home. OBJECTIVE: VITAL SIGNS: Temperature 98, pulse 73, respirations 20, O2 sat 95%, blood pressure 146/76. HEENT: Unremarkable. NECK: No JVD. CHEST: Clear without wheezing or rhonchi. CARDIAC: S1 and S2 regular. ABDOMEN: Soft. EXTREMITIES: No edema. LABORATORY DATA: Her chemistry was normal except for potassium 3.4 and glucose of 59. ASSESSMENT: 1. Small-bowel obstruction that appears to be resolved. 2. Status post V-tach. 3. Underlying chronic obstructive pulmonary disease, which is stable. PLAN: No real pulmonary issues at this time. I will sign off. Please recall if further assistance needed.
[2018-09-04] MEDS: Potassium Chloride 20 MEQ TAB PO SCH (16:38)
--- NOTE | 2018-09-04 18:35 | PRG ---
DATE OF SERVICE: 09/04/2018 The patient is hospital day #3, status post admission for a possible small-bowel obstruction and also the patient had an episode of ventricular tachycardia. We have been following the patient for evalu ation of a possible small-bowel obstruction. Yesterday, she underwent a small bowel follow through w hich was unremarkable, matter fact, the contrast passed through as expected timewise. Overnight, the patient has had no issues. She is continuing to have loose stools and is tolerating a diet and caro es any pain. During my interview, the patient noted that she has been on antibiotics for [place] n 14 days, approximately 2 weeks ago due to admission for a COPD exacerbation and was treated for bro nchitis. PHYSICAL EXAMINATION: VITAL SIGNS: Temperature is 98.7, heart rate 80, blood pressure 164/82, respirations 18, oxygen satu ration is 95% on room air. GENERAL: The patient is resting comfortably in bed. She is awake, alert, oriented. HEENT: Unremarkable. LUNGS: Clear to auscultation bilaterally. HEART: Regular rate and rhythm. ABDOMEN: Soft, flat, nontender with hyperactive bowel sounds. EXTREMITIES: Neurovascularly intact x4. LABORATORY DATA: Sodium 141, potassium 3.4, chloride 106, CO2 of 26, BUN 17, creatinine 0.71, glucos e 78, magnesium 1.8, phosphorus 2.8. There are no radiographs to review this morning. ASSESSMENT AND PLAN: 1. Status post possible small-bowel obstruction, resolved. 2. Status post ventricular tachycardia. 3. Chronic obstructive pulmonary disease. Plan will be to continue supportive care. Per the primary team, we will order a C. diff today. Othe rwise, we have no further recommendations and we will sign off. We may be reconsulted if needed. Th e evaluation and examination were done with Dr. James during rounds this morning.
[2018-09-04] MEDS: Magnesium Oxide 400 MG TAB PO SCH (20:55)
[2018-09-04] MEDS: traZODone HCl 50 MG TAB PO SCH (20:56)
[2018-09-05] MEDS: Levothyroxine Sodium 50 MCG TAB PO SCH (06:11)
--- NOTE | 2018-09-05 06:35 | PDOC.FM ---
- Subjective Subjective: NAEO. Patient denies any further N/V. Does endorse some abdominal pain with eating. Last BM was yesterday. Is now passing gas. Is tolerating PO well. Would like to go home today. - Objective MAR Reviewed: Yes Vital Signs & Weight: Vital Signs (12 hours) Temp Pulse Resp BP BP Pulse Ox 09/05/18 03:22 97.8 F 77 18 145/64 H 92 L 09/04/18 23:49 98.2 F 86 14 145/64 H 89 L 09/04/18 21:45 96 09/04/18 20:55 78 140/78 09/04/18 20:54 78 140/78 09/04/18 19:30 98 F 78 16 140/78 96 09/04/18 19:22 71 16 94 L Weight Weight 60.373 kg I&O: 09/03/18 09/04/18 09/05/18 06:59 06:59 06:59 Intake Total 541 2252 Output Total 600 1600 Balance -59 652 Result Diagrams: 09/05/18 06:43 09/05/18 06:43 Phys Exam - Physical Examination Constitutional: NAD HEENT: sclera anicteric Neck: supple, full ROM Respiratory: no wheezing, clear to auscultation bilateral Cardiovascular: no significant murmur irregularly irregular rhythm w/ normal rate Gastrointestinal: soft, no distention, positive bowel sounds Musculoskeletal: no edema Neurological: non-focal, moves all 4 limbs Psychiatric: normal affect, A&O x 3 Skin: no rash, normal turgor, cap refill <2 seconds Dx/Plan (1) Atrial fibrillation Code(s): I48.91 - UNSPECIFIED ATRIAL FIBRILLATION Status: Chronic Qualifiers: Atrial fibrillation type: chronic Qualified Code(s): I48.2 - Chronic atrial fibrillation (2) COPD (chronic obstructive pulmonary disease) Status: Chronic (3) Leukocytosis Code(s): D72.829 - ELEVATED WHITE BLOOD CELL COUNT, UNSPECIFIED Status: Acute (4) Ventricular tachycardia Code(s): I47.2 - VENTRICULAR TACHYCARDIA Status: Resolved (5) Atrial fibrillation with RVR Code(s): I48.91 - UNSPECIFIED ATRIAL FIBRILLATION Status: Resolved (6) Diastolic CHF, acute on chronic Code(s): I50.33 - ACUTE ON CHRONIC DIASTOLIC (CONGESTIVE) HEART FAILURE Status : Chronic (7) Chronic respiratory failure Code(s): J96.10 - CHRONIC RESPIRATORY FAILURE, UNSP W HYPOXIA OR HYPERCAPNIA Status: Chronic (8) Dyslipidemia Code(s): E78.5 - HYPERLIPIDEMIA, UNSPECIFIED Status: Chronic (9) HTN (hypertension) Code(s): I10 - ESSENTIAL (PRIMARY) HYPERTENSION Status: Chronic - Plan Plan: Ventricular Tachycardia - Resolved, likely 2/2 electrolyte abnormalities and/or medication noncompliance. - Echo showed preserved EF of 55-60%. - Trop neg x2 on admission. - Will continue to follow electrolytes w/ QD BMP, Mg, phos. SBO - Advanced to regular diet/diet as tolerated yesterday as small bowel follow through negative for obstruction. - Will continue PO pain meds and zofran for nausea. h/o melena w/ weight loss - Surgery consulted & did not see any need for emergent surgical intervention at this time. Recommended an FOBT and colonoscopy as an outpatient as patient reported episodic melena & 20 pound unintentional weight loss. - FOBT pending. Hypophosphatemia - Phosphate 1.9 this AM. Hypokalemia - Increased PO replacement to 20 BID rather than 20 QD with goal to get K up to 4.0. K 3.6 this AM. - Mg WNLs at 2.0. - Will continue w/ QD PO K replacement upon d/c until f/u w/ PCP. Leukocytosis - Resolved. WBC down to 6.0 this AM. Atrial fibrillation s/p pacemaker placement - Will continue home meds - Pacemaker interrogated yesterday and functioning normally. COPD - Continue home meds HTN - Continue home meds Hypothyroidism - TSH WNLs on admission. - Will continue home meds. HLD - Will continue home meds. Code Status: FULL DVT ppx: Xarelto Dispo: Likely d/c today since patient is tolerating PO.
[2018-09-05] MEDS: Mometasone/Formoterol 120 PUFF INHALER INH SCH (06:51)
[2018-09-05 07:11] VITALS: BMI 23.6
[2018-09-05 07:22] LABS: #Eosinphils 0.4 thou/uL (0.0-0.7); #Lymphocytes 1.4 thou/uL (1.20-3.40); #Monocytes 0.8 thou/uL (0.11-0.59); #Neutrophils 3.4 thou/uL (1.40-6.50); %Basophils 0.7 % (0.0-1.0); %Eosinophils 6.2 % (0.0-10.0); %Lymphocytes 23.6 % (21.0-51.0); %Monocytes 13.2 % (0.0-10.0); %Neutrophils 56.3 % (42.0-75.0); Hemoglobin 12.7 g/dL (12.0-16.0); Mean Corpuscular HGB CONC 32.6 g/dL (32.0-36.0); Mean Corpuscular Hemoglobin 29.6 pg (27.0-31.0); Mean Corpuscular Volume 90.8 fL (78.0-98.0); Platelet Count 144 thou/uL (130-400); RBC Distribution Width 12.6 % (11.5-14.5)
[2018-09-05 07:35] LABS: Anion Gap 12 mmol/L (10-20); BUN (Urea Nitrogen) 12 mg/dL (9.8-20.1); Calc. Creatinine Clearance 51 mL/min (70-130); Carbon Dioxide 28 mmol/L (23-31); Chloride 106 mmol/L (98-107); Estimated GFR-MDRD 71; Glucose 96 mg/dL (83-110); Phosphorus 1.9 mg/dL (2.3-4.7); Potassium 3.6 mmol/L (3.5-5.1); Sodium 142 mmol/L (136-145)
[2018-09-05] MEDS: Carvedilol 25 MG TAB PO SCH (08:46)
[2018-09-05] MEDS: Losartan 25 MG TAB PO SCH (08:46)
[2018-09-05] MEDS: Atorvastatin Calcium 10 MG TAB PO SCH (08:46)
[2018-09-05] MEDS: Rivaroxaban 10 MG TAB PO SCH (08:48)
[2018-09-05] MEDS: Sotalol HCl 80 MG TAB PO SCH (08:48)
[2018-09-05] MEDS: PARoxetine 20 MG TAB PO SCH (08:50)
[2018-09-05] MEDS: Potassium Chloride 20 MEQ TAB PO SCH (08:50)
[2018-09-05] MEDS: Roflumilast [Daliresp] 500 MCG PO SCH (08:52)
[2018-09-05 08:54] VITALS: BP 171/78
[2018-09-05] MEDS: Magnesium Oxide 400 MG TAB PO SCH (08:54)
[2018-09-05 09:49] VITALS: TEMP 98.2
--- NOTE | 2018-09-06 14:37 | ADD-PRG ---
DATE OF SERVICE: 09/04/2018 Please see the note from Dr. Schilling, for which I agree. The patient was seen, evaluated, and examined with the resident. The patient overnight is doing a lo t better, less abdominal pain. The small bowel follow-through yesterday showed no evidence of obstru ction. Otherwise, has been stable. There was some question if she has had weight loss and melena. Surgery was not too concerned with that and was recommended outpatient followup on that. So, basical ly today we are slowly advancing her and moving out to the floor .
--- NOTE | 2018-09-06 15:06 | ADD-PRG ---
DATE OF SERVICE: 09/05/2018 ADDENDUM Please see the note from Dr. Schilling, for which I agree. SUBJECTIVE: The patient was seen, evaluated and examined with the residents by bedside. Basically, she is doing great, tolerating p.o. food and passing gas. No major abdominal pain, nausea or vomitin g. So, it sounds like the partial small-bowel obstruction type picture has cleared and otherwise she is doing okay. We are going to need to replace her potassium probably as an outpatient. We will fo llow that closely as well as phosphorus, but I think once she starts eating, she will be doing better . Really no other issues have come up. OBJECTIVE: ENT: Normal. CHEST: Clear. CARDIOVASCULAR: Regular rate and rhythm. ABDOMEN: Soft, nontender, nondistended. No hepatosplenomegaly or masses. Normal bowel sounds. She will be discharged to follow up with her primary care.
--- NOTE | 2018-09-07 10:32 | DIS-2 ---
DATE OF ADMISSION: 09/02/2018 DATE OF DISCHARGE: 09/05/2018 RESIDENT: Dr. Quiana Schilling. ADMITTING ATTENDING: Ashleigh Moreno M.D. DISCHARGE ATTENDING: Zack Duran M.D. CONSULTS. 1. Pulmonology, Dr. Ori Loyola. 2. General Surgery, Dr. Cristiano James. PROCEDURES: 1. Acute abdomen series on 09/02/2018 significant for an adynamic ileus versus mechanical obstruction. 2. Abdomen and pelvis CT on 09/03/2018 significant for mild to moderate partial bowel obstruction in the right lower hemipelvis. 3. Small bowel x-ray obtained on 09/03/2018 significant for appropriate transit of contrast into the colon, excluding high grade obstruction. 4. Echocardiogram obtained on 09/03/2018 which was significant for an ejection fraction estimated at 55%-60% with severe tricuspid regurgitation, and mild aortic regurgitation as well as severe tricuspid regurgitation, and mild pulmonic regurgitation. DISCHARGE DIAGNOSES: 1. Small-bowel obstruction. 2. Atrial fibrillation with rapid ventricular response. 3. Leukocytosis. 4. Hypokalemia. 5. Hypophosphatemia SECONDARY DIAGNOSES: 1. Chronic atrial fibrillation. 2. Chronic obstructive pulmonary disease. 3. Diastolic congestive heart failure. 4. Hypertension. 5. Dyslipidemia. 6. Hypothyroidism. DISCHARGE MEDICATIONS: 1. Paroxetine HCL 20 mg p.o. daily. 2. Acetaminophen 650 mg p.o. every 4. p.r.n. 3. Potassium chloride 20 mEq p.o. daily for 7 days. 4. Atorvastatin calcium 10 mg p.o. daily. 5. Carvedilol 25 mg p.o. b.i.d. 6. Diltiazem 120 mg p.o. b.i.d. 7. Levothyroxine 50 mcg p.o. daily. 8. Losartan potassium 50 mg p.o. daily. 9. Xarelto 20 mg p.o. daily. 10. Roflumilast 500 mcg p.o. daily. 11. Sotalol HCL 80 mg p.o. b.i.d. DISCONTINUED MEDICATIONS: None. HOSPITAL COURSE: The patient is an 88-year-old female with a past medical history significant for chronic atrial fibrillation, status post pacemaker placement as well as diastolic CHF, COPD, and hypothyroidism who presented to the Emergency Department with a chief complaint of abdominal pain that has been ongoing for the last couple of days, but had gotten significantly worse the morning of the day of presentation. The patient also reported some associated nausea and vomiting with this abdominal pain, but stated she did have a bowel movement earlier that day. On presentation to the emergency department, the patient's vitals were noted to be within normal limits other than slight tachycardia with a heart rate just above 100 and a slightly elevated blood pressure at 154/99. The patient also reported that her abdominal pain was 10/10 on presentation to the emergency department. The patient was given 4 mg of IV morphine and Zofran for her nausea, vomiting, and pain as well as a 6.25 mg dose of Phenergan. She was also given a 500 mL bolus of normal saline. An EKG was immediately obtained which was significant for atrial fibrillation with rapid ventricular rate. Of note, after reviewing the EKG, it was noted that the patient also had a nonsustained run of ventricular tachycardia. She was therefore given a 5 mg dose of IV diltiazem as her heart rate had risen into the 130s. The patient was completely asymptomatic throughout this episode. Initial lab work was significant for a slightly elevated white blood cell count of 12.9. Otherwise, the patient's liver function tests, CK-MB and troponin, TSH and BMP were all within normal limits. The patient was then admitted to the [facility] for close observation overnight. However, uue to her abdominal pain an acute abdomen series was obtained which was significant for an adynamic ileus versus mechanical obstruction, and it was recommended to follow this study with an abdominal pelvic CT. The patient was therefore made n.p.o. and admitted to the Family Medicine Residency team to be monitored closely overnight. Later that morning, the patient had an abdomen and pelvis CT taken which showed a mild to moderate partial small bowel obstruction in the right lower hemipelvis. The patient was therefore continued n.p.o. and started on LR at 100 mL/hr. On the second day of hospitalization, later that morning, a small bowel follow through was obtained which revealed that her obstruction had resolved. The patient's diet was therefore advanced as tolerated. While in the [facility], Pulmonology, Dr. Ori Loyola, came and evaluated the patient and recommended a general surgery consultation and that the patient be moved out of the [facility]. Therefore, General Surgery, Dr. Cristiano James was consulted and came and evaluated the patient. He recommended obtaining an acute small bowel follow through to define any mechanical obstruction. A small bowel follow through was therefore ordered which revealed no obstruction. The patient was monitored for 1 additional day and had several bowel movements after completing the small bowel follow through, indicating that her obstruction had indeed resolved. She tolerated a p.o. diet without any significant nausea or vomiting over the course of her stay and was therefore cleared for discharge home. a Regarding her nonsustained run of v-tach, on the second day of hospitalization, an echocardiogram was obtained due to the patient's nonsustained run of ventricular tachycardia which revealed valvular regurgitation in all valves, the most severe in the tricuspid valve, and an estimated ejection fraction of 55 %-60%. Also, on 09/03/2018, the patient was noted to have a low serum potassium and she was started on 20 mEq p.o. daily. She was given PO potassium replacement PRN for the duration of her stay and was discharged home on p.o. oral potassium replacement for 1 week and instructed to follow up with her primary care physician within this time frame upon discharge. DISPOSITION: Stable. DISCHARGE INSTRUCTIONS: 1. Location: Home. 2. Diet: Heart healthy diet. 3. Activity as tolerated. 4. Followup: The patient was instructed to follow up with her primary care physician, Dr. Shawn Bhatia within 1 week of discharge. EDWIN
--- NOTE | 2018-09-07 17:49 | PQF ---
BHARGAVI MATAMOROS ANNA MD [id number] [facility]- B08 [id number] CLINICAL DOCUMENTATION CLARIFICATION FORM: POST DISCHARGE Addendum to original discharge summary date: ____ Late entry note date: __ DATE: 09/07/2018 ATTN: Please exercise your independent, professional judgment in responding to the clarification form. Clinical indicators are provided on the bottom of this form for your review Diagnosis: Acute on Chronic CHF __ Present on Admission (POA): [ ] Yes [ ] No [ ] Unable to determine [ ] Does not apply to patient Coding guidelines require hospitals to identify whether a diagnosis was present on admission (POA) or not. To accurately assign the appropriate POA indicator, this information must be clearly documented within the medical record. CLINICAL INDICATORS - SIGNS / SYMPTOMS / LABS Documentation to support POA status Ejection Fraction 55%-60% Acute on chronic CHF noted in progress notes RISK FACTORS: Documentation to support POA status Hypertension SBO (This form is maintained as a part of the permanent medical record) 2014 [employer]. All Rights Reserved Rj [email or web address] [phone] MTDD
== END 2018-09-05 10:50 | disposition home or self-care (01) | DRG 389 ==
LOC: ERS 19:43 → IMCU/EMU 23:23 → SURG B 09-04 10:46
PROVIDERS: ADMIT Family Medicine; ATTEND Family Medicine
DX: K56.600 Partial intestinal obstruction, unspecified as to cause (principal); I47.2 Ventricular tachycardia; I50.32 Chronic diastolic (congestive) heart failure; J96.10 Chronic respiratory failure, unspecified whether with hypoxia or hypercapnia; Z95.0 Presence of cardiac pacemaker; I11.0 Hypertensive heart disease with heart failure; D72.829 Elevated white blood cell count, unspecified; J44.9 Chronic obstructive pulmonary disease, unspecified; E87.6 Hypokalemia; E83.39 Other disorders of phosphorus metabolism; E78.5 Hyperlipidemia, unspecified; E03.9 Hypothyroidism, unspecified; I48.2 Chronic atrial fibrillation; Z96.653 Presence of artificial knee joint, bilateral; Z79.899 Other long term (current) drug therapy; Z79.01 Long term (current) use of anticoagulants; Z91.048 Other nonmedicinal substance allergy status; E83.42 Hypomagnesemia; I08.1 Rheumatic disorders of both mitral and tricuspid valves; I37.1 Nonrheumatic pulmonary valve insufficiency
CPT/HCPCS: 36415; 36416; 74022; 74176; 74250; 80048; 80053; 82550; 82553; 83690; 83735; 84100; 84443; 84484; 85025; 90471; 90662; 93005; 93306; 94664; 96361; 96374; 96375; G0008; J2270; J2405; J2550; J3475; J7050; Q0162

== ENCOUNTER 2019-01-10 07:40 | Inpatient (IN) | payer MEDICARE ==
[2019-01-10 08:38] LABS: #Eosinphils 0.3 thou/uL (0.0-0.7); #Lymphocytes 1.8 thou/uL (1.20-3.40); #Monocytes 0.9 thou/uL (0.11-0.59); #Neutrophils 4.1 thou/uL (1.40-6.50); %Basophils 0.5 % (0.0-1.0); %Eosinophils 3.6 % (0.0-10.0); %Lymphocytes 25.8 % (21.0-51.0); %Monocytes 12.1 % (0.0-10.0); Hemoglobin 13.6 g/dL (12.0-16.0); Mean Corpuscular HGB CONC 32.3 g/dL (32.0-36.0); Mean Corpuscular Hemoglobin 30.6 pg (27.0-31.0); Mean Corpuscular Volume 94.7 fL (78.0-98.0); Mean Platelet Volume 8.5 fL (7.4-10.4); Platelet Count 121 thou/uL (130-400); Red Blood Cell (RBC) Count 4.43 mill/uL (4.20-5.40)
[2019-01-10 08:43] LABS: PTT 36.3 SEC (22.9-36.1)
[2019-01-10 08:44] LABS: INR-International Normal Ratio 1.4; Prothrombin Time 17.2 SEC (12.0-14.7)
[2019-01-10] MEDS ORDERED: PROPOFOL 20 ML ONE (09:04)
[2019-01-10] MEDS ORDERED: Lidocaine 1% PF 5 ML VIAL ONE ×2 (09:05→16:44)
[2019-01-10 09:08] LABS: Anion Gap 16 mmol/L (10-20); BUN (Urea Nitrogen) 17 mg/dL (9.8-20.1); Calc. Creatinine Clearance 49 mL/min (70-130); Calcium 9.4 mg/dL (7.8-10.44); Carbon Dioxide 19 mmol/L (23-31); Chloride 111 mmol/L (98-107); Estimated GFR-MDRD 73; Glucose 92 mg/dL (83-110); Potassium 3.5 mmol/L (3.5-5.1); Sodium 142 mmol/L (136-145)
--- NOTE | 2019-01-10 10:25 | OP ---
DATE OF PROCEDURE: 01/10/2019 INTERNAL AND EXTERNAL CARDIOVERSION REPORT I am seeing Ms. Verma at our [facility] for a cardioversion. She is a lady, who had biventricular ICD implanted in December 2015, and had atrial fibrillation suboptimally suppressed with sotalol. She has been in atrial fibrillation since August of 2018 since a small bowel obstruction. Now, she recovered and she is continued on sotalol but in atrial flutter. She is here for a potential cardioversion. DESCRIPTION OF PROCEDURE: The patient received propofol by Anesthesia specialist. After adequate level of sedation achieved, a synchronized external 100 and internal 41 joules shock were delivered. Both attempts restored sinus rhythm, but a quick recurrence of atrial fibrillation/atypical atrial flutter is noted. ICD interrogation was performed revealing adequately functioning [employer] device. The battery longevity is adequate at approximate time to explant is five years. The parameters are also adequate. The patient is at 95 % LV with only 74%, RV pace suggestive of 21% trigger pacing. The patient is not paced in the atrium atrial fibrillation since last interrogation. The sensing is adequate in the atrium at 2 mV and 11 mV in the RV. Capture threshold is also adequate at 1.6 V at 0.5 milliseconds in the LV and 0.6 at 0.5 milliseconds in the RV. No recent tachyarrhythmia episodes are seen. CONCLUSION: Early recurrence of atrial fibrillation after successful cardioversion. PLAN: At this point, we could consider increasing sotalol and attempt recardioversion in 2 days. Monitor on telemetry. Job ID: [id number] [facility]
[2019-01-10] MEDS ORDERED: PROVENTIL INHALER 6.7 G (200 INHALATIONS) INH PRN (10:31)
[2019-01-10] MEDS ORDERED: Sotalol HCl 80 MG TAB PO SCH (10:45)
[2019-01-10] MEDS ORDERED: Sotalol HCl 80 MG TAB ONE (11:21)
[2019-01-10] MEDS ORDERED: PROPOFOL 200 MG/20 ML VIAL ONE (16:44)
[2019-01-10] MEDS: Carvedilol 25 MG TAB PO SCH (19:56)
[2019-01-10] MEDS: Sotalol HCl 80 MG TAB PO SCH (19:56)
[2019-01-10] MEDS: traZODone HCl 50 MG TAB PO SCH (19:57)
[2019-01-10] MEDS: Mometasone/Formoterol 120 PUFF INHALER INH SCH (20:13)
[2019-01-10 20:40] VITALS: BMI 21.3
[2019-01-11] MEDS: Levothyroxine Sodium 50 MCG TAB PO SCH (05:08)
[2019-01-11] MEDS: Mometasone/Formoterol 120 PUFF INHALER INH SCH ×2 (07:10→20:01)
[2019-01-11] MEDS: Atorvastatin Calcium 10 MG TAB PO SCH (08:47)
[2019-01-11] MEDS: Carvedilol 25 MG TAB PO SCH ×2 (08:47→20:49)
[2019-01-11] MEDS: Sotalol HCl 80 MG TAB PO SCH ×2 (08:49→20:48)
[2019-01-11] MEDS: Rivaroxaban 10 MG TAB PO SCH (08:49)
[2019-01-11] MEDS: Losartan 25 MG TAB PO SCH (08:49)
[2019-01-11] MEDS: PARoxetine 20 MG TAB PO SCH (08:49)
[2019-01-11] MEDS ORDERED: ROFLUMILAST 500 MCG PO SCH (09:00)
[2019-01-11] MEDS ORDERED: Acetaminophen 325 MG TAB PO PRN (14:08)
[2019-01-11] MEDS ORDERED: Calcium Carbonate 500 MG ChewTAB PO PRN (14:08)
[2019-01-11] MEDS ORDERED: Famotidine 20 MG TAB PO PRN (14:08)
--- NOTE | 2019-01-11 14:16 | PDOC.CTH ---
Cardiology Progress Note - Subjective EP PROGRESS NOTE: 01/11/19 Seen as follow up for sotalol loading and atrial fibrillation. Failed CV yesterday. No cardiac concerns or complaints today. - Objective Vital Signs Temp Pulse Resp BP Pulse Ox 01/11/19 11:17 98 F 81 16 156/75 H 97 01/11/19 08:48 92 01/11/19 07:12 97 01/11/19 07:10 83 20 93 L 01/11/19 07:07 99.2 F 88 18 169/87 H 96 01/11/19 04:00 98.1 F 78 16 149/75 H 97 Weight 136 lb 6.4 oz 01/10/19 01/11/19 01/12/19 06:59 06:59 06:59 Intake Total 240 Output Total 450 Balance -210 - Physical Examination General/Neuro: alert & oriented x3, NAD Neck: carotid US brisk, no JVD present Lungs: CTA, unlabored respirations Abdomen: NT/ND, soft - Telemetry Telemetry Rhythm: atrial flutter controlled rates - Labs Result Diagrams: 01/10/19 08:26 01/10/19 08:26 - Assessment/Plan 1. Atrial fibrillation/atrial flutter -refractory to Sotalol 80mg BID. DCCV on 01/10 with ERAF. - admitted for sotalol loading on 120mg BID 2. CHADS2-VASC: 4 - continue xarelto 3. Bi-V ICD, [place] [employer] QRS baseline: 160ms QTc baseline: 570ms 01/11/19 QTc: 544ms (stable with baseline bundle branch block Continue sotalol at current dose. 12 lead EKG 2 hours after every dose of sotalol. Plan on DCCV tomorrow AM then DC if CV successful. NPO after MN.
[2019-01-11] MEDS: traZODone HCl 50 MG TAB PO SCH (20:49)
[2019-01-12] MEDS: Levothyroxine Sodium 50 MCG TAB PO SCH (05:51)
[2019-01-12] MEDS: Mometasone/Formoterol 120 PUFF INHALER INH SCH (07:16)
[2019-01-12 09:14] VITALS: BP 180/84; TEMP 97.9
[2019-01-12] MEDS: PARoxetine 20 MG TAB PO SCH (09:15)
[2019-01-12] MEDS: Carvedilol 25 MG TAB PO SCH (09:15)
[2019-01-12] MEDS: Atorvastatin Calcium 10 MG TAB PO SCH (09:15)
[2019-01-12] MEDS: Sotalol HCl 80 MG TAB PO SCH (09:15)
[2019-01-12] MEDS: Losartan 25 MG TAB PO SCH (09:15)
[2019-01-12] MEDS: Rivaroxaban 10 MG TAB PO SCH (09:15)
--- NOTE | 2019-01-12 09:45 | OP ---
DATE OF PROCEDURE: 01/12/2019 PROCEDURE PERFORMED: Internal cardioversion. REFERRING PHYSICIAN: Dr. Miller. REASON FOR PROCEDURE: Ms. Verma is an 88-year-old woman with history of atrial arrhythmias, prior history of sotalol use, she has had a cardioversion 2 days ago on Sotalol 80mg twice a day. Sotalol was increased to 160 mg twice a day today. She is here for a repeat cardioversion. Continues on uninterrupted anticoagulation. DESCRIPTION OF PROCEDURE: The patient received propofol by Anesthesia specialist. After adequate level of sedation achieved, repeated right pacing attempts failed to convert the patient back to sinus rhythm. At that point, 41-joule synchronized internal shock was delivered, which promptly converted the patient back to sinus rhythm. CONCLUSION: Successful cardioversion. PLAN: Continue sotalol. Monitor for arrhythmias. Continue anticoagulation. Job ID: [id number] MTDD
--- NOTE | 2019-01-12 13:06 | DIS ---
DATE OF ADMISSION: 01/10/2019 DATE OF DISCHARGE: 01/12/2019 ADMISSION DIAGNOSES: 1. Persistent atrial fibrillation/flutter. 2. Chronic congestive heart failure, cardiomyopathy, BiV-ICD in place. 3. Status post failed cardioversion on 80 mg twice a day sotalol, which was increased to 160 mg twice a day sotalol. Subsequent cardioversion two days later on 01/12/2019. 4. Uninterrupted anticoagulation. HOSPITAL COURSE: Ms. Verma was admitted after a failed cardioversion for increased sotalol and monitoring. She tolerated the increased medication well. Her blood pressure remained stable, ranges from 148/71 to 165/87. This morning, she underwent a repeated cardioversion internally, which converted her back to sinus rhythm. EKGs were monitored throughout the stay, and the QTc remained stable. On January 11, the QTc was 544 msec, actually decreased from a baseline of 570 msec. She also has wide QRS at 160 msec. No ventricular proarrhythmia is noted. The renal function is stable. On 01/10/2019, BUN was 17 and creatinine was 0.75. PLAN: Discharge home on increased dose of sotalol at 160 mg twice a day. Continue prior medications also including Xarelto 10 mg a day, fluticasone, Lipitor, carvedilol 25 mg twice a day, diltiazem CD 120 mg twice a day, levothyroxine, losartan, paroxetine, roflumilast, and trazodone will be continued. Routine outpatient followup and will consider further ablative therapy if symptomatic recurrence of atrial fibrillation is seen. Job ID: [id number]
[2019-01-12] MEDS ORDERED: PROPOFOL 200 MG/20 ML VIAL ONE (13:30)
== END 2019-01-12 11:28 | disposition home or self-care (01) | DRG 309 ==
LOC: CCL 07:40 → 2NO 18:18
PROVIDERS: ADMIT Internal Medicine Cardiovascular Disease; ATTEND Internal Medicine Cardiovascular Disease
PROC: 5A2204Z Restoration of Cardiac Rhythm, Single (ICD-10-PCS; principal; 2019-01-10)
PROC: 5A2204Z Restoration of Cardiac Rhythm, Single (ICD-10-PCS; 2019-01-12)
DX: I48.1 Persistent atrial fibrillation (principal); I50.22 Chronic systolic (congestive) heart failure; I11.0 Hypertensive heart disease with heart failure; I42.8 Other cardiomyopathies; Z95.810 Presence of automatic (implantable) cardiac defibrillator; Z79.01 Long term (current) use of anticoagulants; Z88.8 Allergy status to other drugs, medicaments and biological substances
CPT/HCPCS: 36415; 80048; 85025; 85610; 85730; 92960; 93005; 93010; 94664; J2001; J2704

== ENCOUNTER 2019-02-28 09:15 | Observation (INO) | payer MEDICARE ==
[2019-02-28] MEDS ORDERED: methylPREDNISolone Sod Succ/PF 125 MG/2 ML VIAL ONE (09:58)
[2019-02-28] MEDS ORDERED: Water For Inject, Bacteriostat 0 ML ONE (09:58)
--- NOTE | 2019-02-28 10:22 | RAD ---
PORTABLE CHEST 1 VIEW: Date; 02/28/19 Time: 0932 hours HISTORY: Dyspnea. FINDINGS: Comparison made with exam of 08/04/18. The left-sided AICD remains in place. The heart is enlarged. The aorta is tortuous. The lungs are wel l expanded without focal areas of consolidation, pneumothoraces, parminder pulmonary edema, or pleural ef fusions. There are degenerative changes in the shoulder joints. Postop changes are seen in the right shoulder and the cervical spine. IMPRESSION: No acute process. POS: [facility]
[2019-02-28 10:35] LABS: #Basophils 0.1 thou/uL (0.0-0.2); #Eosinphils 0.6 thou/uL (0.0-0.7); #Lymphocytes 2.7 thou/uL (1.20-3.40); #Monocytes 0.9 thou/uL (0.11-0.59); #Neutrophils 4.9 thou/uL (1.40-6.50); %Eosinophils 6.4 % (0.0-10.0); %Lymphocytes 29.3 % (21.0-51.0); %Neutrophils 53.3 % (42.0-75.0); Hemoglobin 15.6 g/dL (12.0-16.0); Mean Corpuscular HGB CONC 32.3 g/dL (32.0-36.0); Mean Corpuscular Hemoglobin 29.5 pg (27.0-31.0); Mean Corpuscular Volume 91.3 fL (78.0-98.0); Mean Platelet Volume 8.8 fL (7.4-10.4); Platelet Count 157 thou/uL (130-400); RBC Distribution Width 11.7 % (11.5-14.5); Red Blood Cell (RBC) Count 5.27 mill/uL (4.20-5.40); White Blood Cell (WBC) Count 9.3 thou/uL (4.8-10.8)
[2019-02-28 10:58] LABS: ALT (SGPT) 11 U/L (8-55); AST (SGOT) 23 U/L (5-34); Albumin 4.1 g/dL (3.4-4.8); Alkaline Phosphatase 115 U/L (40-150); Anion Gap 11 mmol/L (10-20); BUN (Urea Nitrogen) 22 mg/dL (9.8-20.1); Bilirubin, Total 0.7 mg/dL (0.2-1.2); CK (CPK) 33 U/L (29-168); Calc. Creatinine Clearance 0 mL/min (70-130); Calcium 9.6 mg/dL (7.8-10.44); Carbon Dioxide 32 mmol/L (23-31); Chloride 104 mmol/L (98-107); Estimated GFR-MDRD 67; Globulin 3.2 g/dL (2.4-3.5); Glucose 92 mg/dL (83-110); Potassium 4.3 mmol/L (3.5-5.1); Protein, Total 7.3 g/dL (6.0-8.3); Sodium 143 mmol/L (136-145)
[2019-02-28] MEDS ORDERED: Carvedilol 25 MG TAB PO SCH (12:45)
--- NOTE | 2019-02-28 13:40 | HP ---
CHIEF COMPLAINT: Shortness of breath. HISTORY OF PRESENT ILLNESS: This patient is an 88-year-old female, who reports that she has COPD and is chronically a bit short of breath but Thursday, she started becoming worse. Her shortness of breath was such that she was having a difficult time even walking around her home. She denied any associated cough, fevers, chills, or chest pains. She was using her home medications including the Daliresp but ultimately was not improving, so she presented to the emergency department. In the emergency department, the patient has received DuoNeb x2 as well as some Solu-Medrol. The patient was feeling somewhat better. However, when attempts were made to get the patient up out of the bed and move around, her sats dropped into the upper 80s even with the oxygen that she is accustomed to using at home. REVIEW OF SYSTEMS: All systems reviewed. All pertinent positives and negatives noted in the history of present illness. PAST MEDICAL HISTORY: Notable for oxygen-dependent COPD. She has chronic atrial fibrillation. She has a pacemaker defibrillator placed for history of ventricular tachycardia, recently had recurrence of atrial fibrillation and has had cardioversion with the addition of sotalol in December. She has hypertension, dyslipidemia, hypothyroidism. PAST SURGICAL HISTORY: Carpal tunnel syndrome, cholecystectomy, hysterectomy, right shoulder surgery, and some other minor orthopedic surgeries. FAMILY HISTORY: Her mother when she was 5-year-old, but she believes it was related to pneumonia. Father of brain cancer when he was 49-year-old. SOCIAL HISTORY: The patient is a nonsmoker, nondrinker, and nondrug user. She lives in [place] and goes to the [facility]. She is DNAR. Her surrogate decision maker is her medical power of immigration attorney which is her son, Rajinder Torres. ALLERGIES: CELEBREX, IODINE, MEPERIDINE. CURRENT MEDICATIONS: 1. Losartan 50 mg daily. 2. Carvedilol 25 mg b.i.d. 3. Levothyroxine 50 mcg daily. 4. Sotalol 80 mg b.i.d. 5. Xarelto 20 mg daily. 6. Paxil 20 mg daily. 7. Daliresp 500 mcg p.o. daily. 8. Lipitor 10 mg daily. 9. Trazodone 100 mg daily. 10. Diltiazem extended release 120 mg b.i.d. 11. Digoxin 0.125 one p.o. daily. PHYSICAL EXAMINATION: VITAL SIGNS: BP 190s over 90s, pulse 78, respirations 18, O2 saturation 96% on room air. GENERAL APPEARANCE: Age-appropriate female, in no distress. She is awake, alert, oriented, pleasant, and cooperative. HEENT: PERRL. No OP lesions. NECK: Supple and symmetric. HEART: Irregularly irregular without murmurs. LUNGS: Diminished with minimal expiratory wheezes and minimal scattered rales. ABDOMEN: Soft, nontender, and nondistended. Positive bowel sounds. EXTREMITIES: No cyanosis, clubbing, or edema. NEUROLOGICAL: She appears to be alert and oriented, and grossly intact with no evidence of focal deficits. SKIN: Warm and dry. LABORATORY DATA: White count 9.3, hemoglobin 15.6, platelets 157. Sodium 143, potassium 4.3, chloride 104, CO2 is 32, BUN 22, creatinine 0.81, lactic acid 1.2, calcium 9.6. LFTs normal. BNP 461. Albumin 4.1. Chest x-ray shows no acute processes. IMPRESSION AND PLAN: 1. Chronic obstructive pulmonary disease exacerbation. The patient has a longstanding chronic obstructive pulmonary disease and is oxygen dependent. She has exacerbations starting a couple of days ago. She has improved while in the emergency department but her oxygen saturations are remaining in the upper 80s, representing an acute on chronic hypoxic respiratory failure. We will continue to keep the patient in observation status and continue with nebulizers and IV steroids. 2. Hypertension. The patient did not take her home medications today and her blood pressure is running high. She states that this is not unusual for her and that her blood pressure always runs high. We will resume her back on her usual medicines and need to watch closely to see if this will come in line. 3. Atrial fibrillation. Continue with sotalol and Xarelto and digoxin. 4. Hyperlipidemia. Continue with her home dose of Lipitor. Job ID: [id number]
[2019-02-28 14:32] VITALS: BMI 19.8
[2019-02-28] MEDS: Acetaminophen 325 MG TAB PO PRN (16:44)
[2019-02-28] MEDS: methylPREDNISolone Sod Succ 40 MG VIAL IVP SCH (16:45)
[2019-02-28] MEDS: Atorvastatin Calcium 10 MG TAB PO SCH (20:44)
[2019-02-28] MEDS: Sotalol HCl 80 MG TAB PO SCH (20:45)
[2019-02-28] MEDS ORDERED: Sotalol HCl 80 MG TAB PO SCH ×2 (21:00)
[2019-03-01] MEDS: methylPREDNISolone Sod Succ 40 MG VIAL IVP SCH ×4 (00:39→17:08)
[2019-03-01 05:14] LABS: #Lymphocytes 1.5 thou/uL (1.20-3.40); #Monocytes 0.2 thou/uL (0.11-0.59); #Neutrophils 7.8 thou/uL (1.40-6.50); %Eosinophils 0.1 % (0.0-10.0); %Lymphocytes 16.2 % (21.0-51.0); %Monocytes 2.3 % (0.0-10.0); %Neutrophils 81.4 % (42.0-75.0); Hemoglobin 14.5 g/dL (12.0-16.0); Mean Corpuscular HGB CONC 33.6 g/dL (32.0-36.0); Mean Corpuscular Hemoglobin 30.5 pg (27.0-31.0); Mean Corpuscular Volume 90.7 fL (78.0-98.0); Platelet Count 143 thou/uL (130-400); RBC Distribution Width 11.5 % (11.5-14.5); Red Blood Cell (RBC) Count 4.76 mill/uL (4.20-5.40); White Blood Cell (WBC) Count 9.5 thou/uL (4.8-10.8)
[2019-03-01] MEDS: Rivaroxaban 10 MG TAB PO SCH (05:16)
[2019-03-01] MEDS: Levothyroxine Sodium 50 MCG TAB PO SCH (05:17)
[2019-03-01 05:29] LABS: Anion Gap 11 mmol/L (10-20); BUN (Urea Nitrogen) 26 mg/dL (9.8-20.1); Calc. Creatinine Clearance 45 mL/min (70-130); Calcium 9.7 mg/dL (7.8-10.44); Carbon Dioxide 27 mmol/L (23-31); Chloride 102 mmol/L (98-107); Estimated GFR-MDRD 69; Glucose 184 mg/dL (83-110); Potassium 4.2 mmol/L (3.5-5.1); Sodium 136 mmol/L (136-145)
[2019-03-01] MEDS: Carvedilol 25 MG TAB PO SCH ×2 (08:10→17:08)
[2019-03-01] MEDS: Losartan 25 MG TAB PO SCH (08:10)
[2019-03-01] MEDS: Acetaminophen 325 MG TAB PO PRN ×2 (08:10→17:08)
[2019-03-01] MEDS: Sotalol HCl 80 MG TAB PO SCH ×2 (08:11→20:45)
[2019-03-01] MEDS: Digoxin 0.125 MG TAB PO SCH (08:11)
[2019-03-01] MEDS: PARoxetine 20 MG TAB PO SCH (08:11)
--- NOTE | 2019-03-01 15:23 | PDOC.PN ---
- Subjective Encounter Start Date: 03/01/19 Encounter Start Time: 15:22 Patient lying in bed, she reports shortness of breath and coughing with phlegm production. She denies chest pain, palpitations or nausea, vomiting. She is tolerating bronchodilation treatments and IV steroids. She remains on home dose oxygen via nasal cannula. - Objective Resuscitation Status - Order Detail: 02/28/19 12:43 Resuscitation Status Routine Resuscitation Status: DNAR: NO Resuscitation Discussed with: Patient MAR Reviewed: Yes Vital Signs & Weight: Vital Signs (12 hours) Temp Pulse Resp BP BP Pulse Ox 03/01/19 12:15 67 16 96 03/01/19 12:00 98.3 F 71 22 H 184/86 H 94 L 03/01/19 09:40 146/98 H 03/01/19 08:11 70 03/01/19 08:10 208/89 H 03/01/19 08:06 98.3 F 70 22 H 212/96 H 96 03/01/19 06:34 97 03/01/19 06:32 62 16 97 03/01/19 04:22 97.9 F 71 20 192/84 H 98 Weight Weight 126 lb 6 oz I&O: 02/28/19 03/01/19 03/02/19 06:59 06:59 06:59 Intake Total 350 Output Total 200 Balance 150 Result Diagrams: 03/01/19 04:38 03/01/19 04:38 Radiology Reviewed by me: Yes Phys Exam - Physical Examination Constitutional: NAD HEENT: PERRLA, moist MMs, oral pharynx no lesions Neck: supple, full ROM Coarse breath sounds, bilateral wheezing noted Cardiovascular: RRR Paced rhythm Gastrointestinal: soft, no distention, positive bowel sounds Musculoskeletal: no edema, pulses present Neurological: non-focal, moves all 4 limbs Psychiatric: normal affect, A&O x 3 Skin: no rash, cap refill <2 seconds Dx/Plan (1) COPD exacerbation Code(s): J44.1 - CHRONIC OBSTRUCTIVE PULMONARY DISEASE W (ACUTE) EXACERBATION Status: Acute (2) Atrial fibrillation Code(s): I48.91 - UNSPECIFIED ATRIAL FIBRILLATION Status: Chronic Qualifiers: Atrial fibrillation type: chronic Qualified Code(s): I48.2 - Chronic atrial fibrillation (3) COPD (chronic obstructive pulmonary disease) Status: Chronic (4) Diastolic CHF, acute on chronic Code(s): I50.33 - ACUTE ON CHRONIC DIASTOLIC (CONGESTIVE) HEART FAILURE Status : Chronic (5) Dyslipidemia Code(s): E78.5 - HYPERLIPIDEMIA, UNSPECIFIED Status: Chronic (6) HTN (hypertension) Code(s): I10 - ESSENTIAL (PRIMARY) HYPERTENSION Status: Chronic - Plan cont current plan of care, continue antibiotics, respiratory therapy * Continue home medications for underlying conditions * Continue IV steroids, bronchodilation treatments * Will add prophylactic IV ceftriaxone to regimen * obtain pacemaker record * patient likely transitioned to oral prednisone and other oral equivalents and d/c home in next 24 hours
[2019-03-01] MEDS ORDERED: cefTRIAXone\\ROCEPHIN 2 GM VIAL ONE (15:34)
[2019-03-01] MEDS ORDERED: cefTRIAXone\\ROCEPHIN 2 GM in Sodium Chloride 0.9% 100 ML IVPB SCH (16:00)
[2019-03-01] MEDS: Atorvastatin Calcium 10 MG TAB PO SCH (20:45)
--- NOTE | 2019-03-01 21:18 | EKG ---
Test Reason : STAT Blood Pressure : / mmHG Vent. Rate : 065 BPM Atrial Rate : 065 BPM P-R Int : 166 ms QRS Dur : 110 ms QT Int : 468 ms P-R-T Axes : 061 -89 116 degrees QTc Int : 486 ms Demand pacemaker; interpretation is based on intrinsic rhythm Sinus rhythm with frequent Premature ventricular complexes Left axis deviation Abnormal ECG When compared with ECG of 28-FEB-2019 09:22, (Unconfirmed) Confirmed by AMELIA THIBODEAUX, SJoseph ([id number]) on 03/01/2019 9:18:06 PM Referred By: Confirmed By:DR. Juan C CISNEROS MD
[2019-03-02] MEDS: methylPREDNISolone Sod Succ 40 MG VIAL IVP SCH ×2 (00:24→05:56)
[2019-03-02] MEDS ORDERED: cloNIDine 0.1 MG TAB PO PRN (04:25)
[2019-03-02] MEDS: Levothyroxine Sodium 50 MCG TAB PO SCH (05:55)
[2019-03-02] MEDS: Rivaroxaban 10 MG TAB PO SCH (05:55)
[2019-03-02 07:54] VITALS: BP 181/88; TEMP 97.4
[2019-03-02] MEDS: Sotalol HCl 80 MG TAB PO SCH (07:59)
[2019-03-02] MEDS: Carvedilol 25 MG TAB PO SCH (07:59)
[2019-03-02] MEDS: PARoxetine 20 MG TAB PO SCH (08:00)
[2019-03-02] MEDS: Digoxin 0.125 MG TAB PO SCH (08:00)
[2019-03-02] MEDS: Losartan 25 MG TAB PO SCH (08:00)
== END 2019-03-02 10:47 | disposition home or self-care (01) ==
LOC: ERS 09:15 → 2SW 12:43
PROVIDERS: ADMIT Internal Medicine; ATTEND Internal Medicine
DX: J44.1 Chronic obstructive pulmonary disease with (acute) exacerbation (principal); I11.0 Hypertensive heart disease with heart failure; I50.33 Acute on chronic diastolic (congestive) heart failure; I48.2 Chronic atrial fibrillation; I47.2 Ventricular tachycardia; E78.5 Hyperlipidemia, unspecified; E03.9 Hypothyroidism, unspecified; Z95.0 Presence of cardiac pacemaker; Z90.49 Acquired absence of other specified parts of digestive tract; Z90.710 Acquired absence of both cervix and uterus; Z88.6 Allergy status to analgesic agent; Z88.5 Allergy status to narcotic agent; Z79.01 Long term (current) use of anticoagulants; Z79.51 Long term (current) use of inhaled steroids; Z79.52 Long term (current) use of systemic steroids; Z79.2 Long term (current) use of antibiotics; Z79.899 Other long term (current) drug therapy; Z98.890 Other specified postprocedural states
CPT/HCPCS: 71045; 80048; 80053; 82550; 83605; 83880; 84484; 85025 ×2; 87040; 93005; 94640 ×4; 94760; 96365; 96375; 96376 ×3; 99285; G0378 ×2; 36415; 93010; 96374; J0696; J2920; J2930; J7620

== ENCOUNTER 2019-03-28 09:37 | Outpatient (CLI) | payer MEDICARE ==
--- NOTE | 2019-03-28 09:52 | RAD ---
EXAM: Chest 2 views: HISTORY: COPD, URI COMPARISON: 12/05/2014 FINDINGS: Left ICD. Anterior cervical fusion changes of the lower cervical spine and postoperative changes righ t shoulder Heart size:Minimally enlarged. Lungs:Mild stable vascular congestion and chronic appearing increased markings without confluent pneu monia. Atherosclerotic changes of the aorta. No confluent pneumonia, overt edema, pleural effusion, pneumothorax, or other significant acute proce ss. IMPRESSION: Stable-appearing chest. Atherosclerosis of the aorta. No acute intrathoracic disease.
== END 2019-03-28 09:38 | disposition home or self-care (01) ==
LOC: RAD-FRANK 09:37
PROVIDERS: ATTEND Nurse Practitioner Family
DX: J44.1 Chronic obstructive pulmonary disease with (acute) exacerbation (principal); J06.9 Acute upper respiratory infection, unspecified; I70.0 Atherosclerosis of aorta
CPT/HCPCS: 71046

== ENCOUNTER 2019-06-28 11:37 | Outpatient (CLI) | payer MEDICARE ==
--- NOTE | 2019-06-28 13:07 | RAD ---
XR Chest Pa Lat STANDARD History: COPD exacerbation Comparison: Radiograph February 2019 Findings: Lungs are hyperinflated. Heart size mildly enlarged. No pneumothorax. There is pleural-pare nchymal scarring in the lung apices. 3-lead AICD/pacer is present. Moderate vascular calcifications of the aorta. Mild levoscoliosis thora columbar junction. Impression: Chronic findings and obstructive pulmonary disease. No acute intrathoracic abnormality.
== END 2019-06-28 11:38 | disposition home or self-care (01) ==
LOC: RAD-FRANK 11:37
PROVIDERS: ATTEND Nurse Practitioner Family
DX: J44.1 Chronic obstructive pulmonary disease with (acute) exacerbation (principal)
CPT/HCPCS: 71046

== ENCOUNTER 2019-10-04 05:28 | Outpatient (CLI) | payer MEDICARE ==
[2019-10-04 15:34] LABS: Hemoglobin 12.6 g/dL (12.0-16.0); Mean Corpuscular HGB CONC 33.6 g/dL (32.0-36.0); Mean Corpuscular Hemoglobin 32.1 pg (27.0-31.0); Mean Corpuscular Volume 95.5 fL (78.0-98.0); Mean Platelet Volume 8.8 fL (7.4-10.4); Platelet Count 175 thou/uL (130-400); RBC Distribution Width 13.1 % (11.5-14.5); Red Blood Cell (RBC) Count 3.93 mill/uL (4.20-5.40); White Blood Cell (WBC) Count 7.9 thou/uL (4.8-10.8)
[2019-10-04 15:40] LABS: INR-International Normal Ratio 3.7; Prothrombin Time 36.6 SEC (12.0-14.7)
[2019-10-04 15:41] LABS: PTT 49.7 SEC (22.9-36.1)
[2019-10-04 15:55] LABS: Anion Gap 12 mmol/L (10-20); BUN (Urea Nitrogen) 24 mg/dL (9.8-20.1); Calc. Creatinine Clearance 0 mL/min (70-130); Calcium 9.2 mg/dL (7.8-10.44); Carbon Dioxide 28 mmol/L (23-31); Chloride 104 mmol/L (98-107); Estimated GFR-MDRD 63; Glucose 99 mg/dL (83-110); Potassium 3.7 mmol/L (3.5-5.1); Sodium 140 mmol/L (136-145)
== END 2019-10-04 05:29 | disposition home or self-care (01) ==
LOC: LABBT 05:28
PROVIDERS: ATTEND Internal Medicine Cardiovascular Disease
DX: Z01.812 Encounter for preprocedural laboratory examination (principal); I48.91 Unspecified atrial fibrillation
CPT/HCPCS: 80048; 85027; 85610; 85730

== ENCOUNTER 2019-10-07 11:02 | Day surgery (SDC) | payer MEDICARE ==
[2019-10-04 13:18] VITALS: BMI 21.1
[2019-10-07] MEDS ORDERED: Lidocaine 1% PF 5 ML VIAL ONE (13:10)
[2019-10-07] MEDS ORDERED: PROPOFOL 20 ML ONE (13:10)
--- NOTE | 2019-10-07 14:29 | EKG ---
Test Reason : POST CARDIOVERISON Blood Pressure : / mmHG Vent. Rate : 063 BPM Atrial Rate : 058 BPM P-R Int : 000 ms QRS Dur : 172 ms QT Int : 544 ms P-R-T Axes : 112 -27 090 degrees QTc Int : 556 ms AV sequential or dual chamber electronic pacemaker When compared with ECG of 28-FEB-2019 19:16, Electronic ventricular pacemaker has replaced Sinus rhythm Confirmed by DR. Lex DORADO ([id number]) on 10/07/2019 2:28:49 PM Referred By: TESSIE Confirmed By:DR. Lex DORADO
--- NOTE | 2019-10-07 19:54 | OP ---
DATE OF PROCEDURE: 10/07/2019 PROCEDURE PERFORMED: Electrical cardioversion. REFERRING PHYSICIAN: REASON FOR PROCEDURE: Mrs. Verma is an 89-year-old female, with history of atrial fibrillation, flutter, who has a biventricular ICD in place, on chronic Xarelto anticoagulation. She is on amiodarone despite persisting atrial flutter. She is here for a planned cardioversion. DESCRIPTION OF PROCEDURE: The patient received propofol by Anesthesia specialist. After adequate level of sedation achieved, a synchronized 100-joule shock promptly converted the patient back to sinus rhythm. CONCLUSION: Successful cardioversion. PLAN: Continue Xarelto and Pacerone/amiodarone. Routine followup in the office. Job ID: [id number]
== END 2019-10-07 14:20 | disposition home or self-care (01) ==
LOC: CCL 11:02
PROVIDERS: ATTEND Internal Medicine Cardiovascular Disease
PROC: 5A2204Z Restoration of Cardiac Rhythm, Single (ICD-10-PCS; principal; 2019-10-07)
DX: I48.92 Unspecified atrial flutter (principal); I11.0 Hypertensive heart disease with heart failure; I50.22 Chronic systolic (congestive) heart failure; Z79.01 Long term (current) use of anticoagulants; Z79.899 Other long term (current) drug therapy; Z91.041 Radiographic dye allergy status; Z95.810 Presence of automatic (implantable) cardiac defibrillator
CPT/HCPCS: 92960; 93005; 93010; J2001; J2704

== ENCOUNTER 2019-11-17 11:14 | Emergency (ER) | payer MEDICARE ==
--- NOTE | 2019-11-17 11:48 | RAD ---
XR Shoulder Rt 3 View STANDARD HISTORY: Injury, right shoulder pain FINDINGS: Postoperative changes of previous rotator cuff surgery are seen. There is a inferior-anterior disloca tion involving the right glenohumeral joint.
[2019-11-17] MEDS ORDERED: Fentanyl 100 MCG/2 ML VIAL ONE ×3 (12:32→13:41)
--- NOTE | 2019-11-17 13:01 | CT ---
CT Brain WO Con: 11/17/2019 11:39 AM CLINICAL HISTORY: Mechanical fall. IMAGING TECHNIQUE: Multiple CT images were obtained of the brain without IV contrast. COMPARISON: None. FINDINGS: Brain: No acute infarct, hemorrhage or hydrocephalus is present. There is moderate chronic small ves radha white matter ischemic change. There is mild generalized cerebral atrophy. Ventricles: Normal. No hydrocephalus.. Skull: Intact.. Visualized Paranasal sinuses: Mild mucosal thickening within the maxillary sinuses.. Mastoid air cells:Clear. Extracranial soft tissues:Normal. IMPRESSION: No acute intracranial abnormality.
[2019-11-17] MEDS ORDERED: Midazolam HCl 5 mg/ml Vial ONE (13:41)
--- NOTE | 2019-11-17 14:45 | RAD ---
XR Shoulder Rt 3 View STANDARD HISTORY: Postreduction images FINDINGS: There has been interval reduction of the dislocation noted on the exam of 12:37 PM from the same date . Anatomic alignment has been restored.
== END 2019-11-17 15:45 | disposition home or self-care (01) ==
LOC: ERS 11:14
DX: S43.014A Anterior dislocation of right humerus, initial encounter (principal); S00.81XA Abrasion of other part of head, initial encounter; E78.5 Hyperlipidemia, unspecified; I10 Essential (primary) hypertension; Z79.01 Long term (current) use of anticoagulants; Z79.899 Other long term (current) drug therapy; W17.89XA Other fall from one level to another, initial encounter
CPT/HCPCS: 23650; 70450; 96374; 96375; 96376; J2250; J3010

== ENCOUNTER 2020-02-27 18:53 | Observation (INO) | payer MEDICARE ==
[2020-02-27] MEDS ORDERED: Lidocaine 1% w/Epinephrine 1:100K 20 ML VIAL ONE (19:04)
[2020-02-27] MEDS ORDERED: hydrALAZINE 20 MG/ML VIAL ONE ×2 (19:07→20:39)
--- NOTE | 2020-02-27 19:46 | CT ---
CT BRAIN NONCONTRAST: DATE: 02/27/2020 HISTORY: 89-year-old female status post acute head trauma from fall FINDINGS: There is no evidence of acute intra-axial or extra-axial hemorrhage. There is no midline shift or any other mass effect. There is no extra-axial fluid collection. There is no evidence of obstructive hydrocephalus. Calvarium is intact. There is diffuse brain parenchymal volume loss. There are low att enuation areas in the white matter. These are nonspecific, but in a patient of this age, they are probably chronic ischemic white matter changes due to microvascular atherosclerosis. IMPRESSION: 1) No acute intracranial findings. 2) involutional changes and chronic ischemic white matter changes.
[2020-02-27 20:36] LABS: #Eosinphils 0.1 thou/uL (0.0-0.7); #Lymphocytes 1.8 thou/uL (1.20-3.40); #Monocytes 1.1 thou/uL (0.11-0.59); #Neutrophils 5.8 thou/uL (1.40-6.50); %Basophils 0.5 % (0.0-1.0); %Eosinophils 1.4 % (0.0-10.0); %Lymphocytes 20.6 % (21.0-51.0); %Monocytes 12.2 % (0.0-10.0); %Neutrophils 65.4 % (42.0-75.0); Hemoglobin 12.3 g/dL (12.0-16.0); Mean Corpuscular HGB CONC 33.3 g/dL (32.0-36.0); Mean Corpuscular Hemoglobin 30.2 pg (27.0-31.0); Mean Corpuscular Volume 90.7 fL (78.0-98.0); Mean Platelet Volume 8.8 fL (7.4-10.4); Platelet Count 155 thou/uL (130-400); RBC Distribution Width 13.8 % (11.5-14.5); Red Blood Cell (RBC) Count 4.06 mill/uL (4.20-5.40); White Blood Cell (WBC) Count 8.9 thou/uL (4.8-10.8)
[2020-02-27 20:42] LABS: ALT (SGPT) 12 U/L (8-55); AST (SGOT) 18 U/L (5-34); Albumin 3.8 g/dL (3.4-4.8); Alkaline Phosphatase 111 U/L (40-110); Anion Gap 14 mmol/L (10-20); BUN (Urea Nitrogen) 15 mg/dL (9.8-20.1); Bilirubin, Total 0.7 mg/dL (0.2-1.2); Calc. Creatinine Clearance 0 mL/min (70-130); Carbon Dioxide 25 mmol/L (23-31); Chloride 106 mmol/L (98-107); Estimated GFR-MDRD 73; Globulin 2.9 g/dL (2.4-3.5); Glucose 124 mg/dL (83-110); INR-International Normal Ratio 2.8; Magnesium 1.9 mg/dL (1.6-2.6); PTT 40.9 SEC (22.9-36.1); Potassium 3.7 mmol/L (3.5-5.1); Protein, Total 6.7 g/dL (6.0-8.3); Prothrombin Time 29.5 SEC (12.0-14.7); Sodium 141 mmol/L (136-145)
[2020-02-27 20:54] LABS: Phosphorus 2.8 mg/dL (2.3-4.7)
[2020-02-27] MEDS ORDERED: Ondansetron PF 4 MG/2 ML Vial IVP PRN (20:58)
[2020-02-27] MEDS ORDERED: Dextrose 50% Abboject 50 ML SYRINGE SLOW IVP PRN (20:58)
[2020-02-27] MEDS ORDERED: hydrALAZINE 20 MG/ML VIAL SLOW IVP PRN (20:58)
[2020-02-27] MEDS ORDERED: Dextrose 5% in Water 1,000 ML IV PRN (20:58)
[2020-02-27] MEDS ORDERED: PHOS-NAK 1 PKT PACK PO SCH (21:00)
[2020-02-27] MEDS ORDERED: Carvedilol 25 MG TAB PO SCH (21:00)
[2020-02-27] MEDS ORDERED: traMADol HCl 50 MG TAB PO PRN ×2 (21:02)
--- NOTE | 2020-02-27 22:18 | HP ---
TRAUMA SURGEON: Dr. Geller. CONSULTING PHYSICIAN: None. HISTORY OF PRESENT ILLNESS: The patient is an 89-year-old female, presented to the emergency department via EMS after she had a mechanical fall, on Xarelto. 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 Upon arrival, the patient had significant blood loss from a laceration just above her right eyebrow bleeding with pulsatile and arterial. The emergency room physician quickly stopped the bleeding, however, reported significant blood loss. CT of the brain demonstrated no acute traumatic brain injury, and GCS remained 15 in the entire time. She was admitted for observation due to head trauma on Xarelto in association with significant blood loss. The patient was also hypertensive in the emergency department, requiring IV push doses of hydralazine. She has not taken her home antihypertensive medications. Upon my evaluation, the patient complained of right-sided head pain. She denied loss of consciousness and reports she takes Xarelto for her pacemaker. She does have a history of COPD and uses 3 L of oxygen nasal cannula at all times. She was complaining of a little cough and some mild difficulty in breathing. She received a nebulizer treatment at that time in the emergency department. She denied neck pain as well as numbness and tingling in her upper and lower extremities. Denied pain other than her head. REVIEW OF SYSTEMS: All additional 10-point review of systems negative except as indicated above. PAST MEDICAL HISTORY: Pacemaker, COPD, and hypertension. PAST SURGICAL HISTORY: Bilateral knee replacements, bladder suspension surgery, appendectomy, cholecystectomy, and right rotator cuff surgery. SOCIAL HISTORY: The patient lives at home with her grandson. She uses a walker to get around. She reports no history of tobacco, drug, or alcohol use. Reports COPD is from a secondhand smoke. MEDICATIONS: 1. Levothyroxine 50 mcg once a day. 2. Xarelto 20 mg once a day. 3. Diltiazem 120 mg twice a day. 4. Trazodone 100 mg one time at nighttime. 5. Carvedilol 25 mg twice a day. 6. Paroxetine 20 mg once a day. 7. Atorvastatin 10 mg once a day. ALLERGIES: IODINE. PHYSICAL EXAMINATION: VITAL SIGNS: The patient is afebrile, heart rate varies between 80 to 100, blood pressure was 190/110, respiratory rate 18, and oxygen saturation 97% on 2 L nasal cannula. PRIMARY SURVEY: Airway intact. Adequate breath sounds bilaterally. 2+ pulses in bilateral radials, femorals, and DPs. GCS 15. Gross motor and sensation are intact. The patient has a laceration above the right thigh with some periorbital bruising. No signs of external bleeding. SECONDARY SURVEY: HEAD: Normocephalic. No gross palpable skull deformities. She does have a laceration just above the right eye with bleeding controlled. EYES: Pupils 3-2, equal, round, reactive to light bilaterally. Normal visual acuity. ENT: No hemotympanum. No epistaxis. No septal hematoma. Midface stable to manipulation. No blood in the oropharynx. Dentition is intact. No anterior neck injury/crepitus/tenderness. C-SPINE: No step-offs or deformities. Nontender. C-collar not in place. CHEST: Nontender. No abrasions or ecchymosis. Equal chest motion. ABDOMEN: Soft, nontender, nondistended. PELVIS: Stable to palpation. RECTAL: Deferred. GENITOURINARY: Deferred. EXTREMITIES: No gross deformities. No abrasions or ecchymosis noted. 2+ pulses in bilateral radials, femorals, and DPs. BACK/SPINE: No step-offs, deformities, or tenderness to palpation of the thoracic or lumbar spine. No abrasions or ecchymosis noted. NEUROLOGIC: 5/5 strength in bilateral sports betting manager, plantar flexion, dorsiflexion. Gross normal sensation x4 extremities. LABORATORY FINDINGS: White count 8.9, hemoglobin 12.3, hematocrit 36.8, and platelets 155. INR 2.8. Sodium 141, potassium 3.6, chloride 106, bicarb 25, BUN 15, creatinine 0.75, glucose 124, phosphorus 2.8, magnesium 1.9, and troponin 0.017. DIAGNOSTIC FINDINGS: CT scan of the brain demonstrates no acute intracranial findings, involutional changes, and chronic ischemic white matter changes. ASSESSMENT: 1. Status post mechanical fall, on Xarelto. 2. Head laceration with associated significant blood loss, hemodynamically stable. 3. History of pacemaker, Chronic obstructive pulmonary disease, hypothyroidism, and Hypertension. PLAN: The patient will be admitted to observation and go to the surgical nursing floor. She received neuro checks as well as a repeat head CT 12 hours from the last, repeat head CT will be at 7 a.m. This is per the trauma protocol for INR of greater than 2.0 on the patient after significant head trauma. We will closely monitor the patient's neuro status and repeat blood work in the morning as well. If there are any changes in her neurological exam overnight, we will repeat head CT earlier. This patient was discussed with Dr. Geller before this dictation. Job ID: [id number] [facility]
[2020-02-27 23:35] VITALS: BMI 21.1
[2020-02-27] MEDS: Acetaminophen 500 MG TAB PO SCH (23:37)
[2020-02-28] MEDS: Acetaminophen 500 MG TAB PO SCH ×2 (05:02→14:09)
[2020-02-28 05:11] LABS: #Eosinphils 0.1 thou/uL (0.0-0.7); #Lymphocytes 1.7 thou/uL (1.20-3.40); #Monocytes 1.1 thou/uL (0.11-0.59); #Neutrophils 4.4 thou/uL (1.40-6.50); %Basophils 0.2 % (0.0-1.0); %Eosinophils 1.8 % (0.0-10.0); %Lymphocytes 23.1 % (21.0-51.0); %Monocytes 14.7 % (0.0-10.0); %Neutrophils 60.2 % (42.0-75.0); Mean Corpuscular HGB CONC 33.8 g/dL (32.0-36.0); Mean Corpuscular Volume 91.6 fL (78.0-98.0); Mean Platelet Volume 8.9 fL (7.4-10.4); Platelet Count 135 thou/uL (130-400); RBC Distribution Width 13.8 % (11.5-14.5); Red Blood Cell (RBC) Count 3.54 mill/uL (4.20-5.40); White Blood Cell (WBC) Count 7.3 thou/uL (4.8-10.8)
[2020-02-28 05:15] LABS: INR-International Normal Ratio 1.8; Prothrombin Time 20.8 SEC (12.0-14.7)
[2020-02-28 05:41] LABS: Anion Gap 10 mmol/L (10-20); BUN (Urea Nitrogen) 14 mg/dL (9.8-20.1); Calc. Creatinine Clearance 55 mL/min (70-130); Calcium 8.2 mg/dL (7.8-10.44); Carbon Dioxide 27 mmol/L (23-31); Chloride 106 mmol/L (98-107); Estimated GFR-MDRD 83; Glucose 96 mg/dL (83-110); Magnesium 1.9 mg/dL (1.6-2.6); Phosphorus 3.1 mg/dL (2.3-4.7); Potassium 3.4 mmol/L (3.5-5.1); Sodium 140 mmol/L (136-145)
[2020-02-28] MEDS ORDERED: PROVENTIL INHALER 6.7 G (200 INHALATIONS) INH PRN (07:17)
--- NOTE | 2020-02-28 08:23 | CT ---
CT HEAD WITHOUT CONTRAST: INDICATION: Fall. The patient is on anticoagulants. COMPARISON: Comparison is made to yesterday's head CT 02/27/2020. FINDINGS: No evidence of intracranial hemorrhage. Severe chronic ischemic white matter changes are seen in bot h cerebral hemispheres. There is no evidence of mass, edema, or infarct. Paranasal sinuses appear c lear with mild mucosal thickening in the left maxillary sinus. Evidence of subcutaneous edema over t he right orbit. IMPRESSION: No evidence of intracranial hemorrhage. POS: [facility]
[2020-02-28] MEDS ORDERED: Levothyroxine Sodium 50 MCG TAB PO SCH (09:00)
[2020-02-28] MEDS ORDERED: Non-Formulary Item 1 EACH (Fluticasone/Vilanterol [Breo Ellipta] 1 PUFF) INH SCH (09:00)
[2020-02-28] MEDS ORDERED: PARoxetine 20 MG TAB PO SCH (09:00)
[2020-02-28] MEDS ORDERED: Carvedilol 25 MG TAB PO SCH (09:00)
[2020-02-28] MEDS ORDERED: Polyethylene Glycol 3350 17 GM Packet PO SCH (09:00)
[2020-02-28] MEDS ORDERED: Atorvastatin Calcium 10 MG TAB PO SCH (09:00)
[2020-02-28] MEDS ORDERED: Non-Formulary Item 1 EACH (Olmesartan Medoxomil [Olmesartan Medoxomil] 40 MG) PO SCH (09:00)
[2020-02-28] MEDS ORDERED: Senokot S 8.6-50 MG TAB PO SCH (09:00)
[2020-02-28] MEDS ORDERED: Losartan 25 MG TAB PO SCH (09:00)
[2020-02-28 12:29] VITALS: BP 123/73; TEMP 98.8
--- NOTE | 2020-02-28 17:56 | DIS ---
DATE OF ADMISSION: 02/27/2020 DATE OF DISCHARGE: 02/28/2020 ADMISSION DIAGNOSES: 1. Status post mechanical fall, on Xarelto. 2. Forehead laceration with associated blood loss, hemodynamically stable. 3. History of pacemaker, chronic obstructive pulmonary disease, hypothyroidism, and hypertension. CONSULTATIONS: None. PROCEDURES: None. SUMMARY: The patient is an 89-year-old woman, who presented to the emergency department by ground EMS after having mechanical fall, on Xarelto. 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 Her initial CT exam was unremarkable and a followup of her head CT in the morning also was unremarkable, at which time, the patient requested that she be discharged home. At the time of discharge, her pain was controlled. She was neurologically intact with a GCS of 15. She worked with Therapy to ensure that she was stable, ambulating. She denied any pain. She tolerated diet. She was discharged home with followup instructions to return as needed. The patient will follow up with her primary care provider in 7 days. We have asked her to hold her Xarelto for 7 days and resume her Xarelto on March 06. Job ID: [id number]
[2020-02-28] MEDS ORDERED: Mometasone 100 MCG/Formoterol 5 MCG 120 PUFF INHALER INH SCH (18:30)
[2020-02-28] MEDS ORDERED: traZODone HCl 50 MG TAB PO SCH (21:00)
[2020-02-28] MEDS ORDERED: Non-Formulary Item 1 EACH (Trazodone Hcl [Trazodone Hcl] 100 MG) PO SCH (21:00)
== END 2020-02-28 16:03 | disposition home or self-care (01) ==
LOC: ERS 18:53 → SJJU 20:12 → ERHOLD 21:24 → SJJU 23:08
PROVIDERS: ADMIT Specialist; ATTEND Specialist
DX: S01.81XA Laceration without foreign body of other part of head, initial encounter (principal); I10 Essential (primary) hypertension; J44.9 Chronic obstructive pulmonary disease, unspecified; Z79.01 Long term (current) use of anticoagulants; Z79.899 Other long term (current) drug therapy; Z91.041 Radiographic dye allergy status; Z95.0 Presence of cardiac pacemaker; W18.30XA Fall on same level, unspecified, initial encounter
CPT/HCPCS: 12013; 70450 ×2; 80048; 80053; 83735 ×2; 84100 ×2; 84484; 85025 ×2; 85610 ×2; 85730; 90471; 94640; 96374; 97116; 97139 ×4; 99291; G0378 ×3; 36415; G0390; J0360; J7620